=== PATIENT | female | born 1940 | race Hispanic/Latino ===

== ENCOUNTER 2018-01-06 15:14 | Observation (INO) | payer OTHER, MEDICARE ==
[~2018-01-06] VITALS: Ht 157.5 cm; Wt 73.6 kg
[~2018-01-06 15:14] MED LIST: AMLO10TA2 PO; BUME2TAB18 PO; CLON0.1T PO; DORZ10DR10 OU; GABA-531 PO; INSU100I21 SQ; LATA2.5D2 OU; METO2.5T2 PO; METO25TA6 PO; PANT40TA25 PO; POTA-79 PO; SIMV40TA5 PO; VALS160T28 PO
[2018-01-06] MEDS ORDERED: ASPIRIN 325 MG TABLET ONE (15:23)
[2018-01-06 15:48] LABS: BASOPHILS % (AUTO) 0.5 % (0.0-5.0); HEMATOCRIT 28.3 % (36-48); LYMPHOCYTES % (AUTO) 7.7 % (21.0-51.0); MEAN CORPUSCULAR HGB CONC 36.7 g/dL (32.0-36.0); MEAN CORPUSCULAR VOLUME 84.5 fL (79-99); MONOCYTES % (AUTO) 4.7 % (3.0-13.0); NEUTROPHILS % (AUTO) 86.1 % (40.0-77.0); PLATELET COUNT (AUTO) 279 K/uL (130-400); RED BLOOD CELL COUNT(AUTO) 3.35 MIL/uL (4.00-5.50); RED CELL DISTRIBUTION WIDTH 13.7 % (11.0-15.5); WHITE BLOOD COUNT (AUTO) 16.3 K/uL (4.8-10.8)
[2018-01-06 15:55] LABS: CREATININE 3.3 mg/dL (0.5-1.5); INR 0.95 (0.85-1.15); PARTIAL THROMBOPLASTIN TIME 24.2 SEC (26.3-35.5); POTASSIUM 4.3 mmol/L (3.5-5.1)
[2018-01-06 16:33] LABS: ALBUMIN 2.7 g/dL (3.5-5.0); BILIRUBIN,TOTAL 0.2 mg/dL (0.2-1.0); CREATINE KINASE MB 2.4 ng/mL (0.5-3.6); TOTAL PROTEIN, SERUM 6.4 g/dL (6.0-8.3)
[2018-01-06] MEDS ORDERED: FENTANYL CITRATE PF 50 MCG/1 ML 2ML VIAL ONE (17:34)
[2018-01-06] MEDS ORDERED: ONDANSETRON HCL MDV 20ML 2 MG/ML VIAL ONE (17:34)
[2018-01-06 20:10] LABS: APPEARANCE,URINE Clear (CLEAR); BILIRUBIN,URINE Negative (NEGATIVE); COLOR,URINE Yellow (YELLOW); GLUCOSE, URINE (UA) Negative (NEGATIVE); KETONES,URINE Negative (NEGATIVE); LEUKOCYTE ESTERASE ,URINE Negative (NEGATIVE); NITRATE,URINE Negative (NEGATIVE); OCCULT BLOOD,URINE Trace (NEGATIVE); PROTEIN,URINE 300 (NEGATIVE); UROBILINOGEN,URINE 0.2 mg/dL (0.2-1.0)
[2018-01-06 20:25] LABS: BACTERIA,URINE Rare /HPF (None Seen); MUCUS,URINE Rare LPF (None Seen); RBC,URINE 0-1 /HPF (0-1); SQUAMOUS EPITHELIAL CELL,UR 0-2 /HPF (0-2); TRANSITIONAL EPI CELLS,URINE Few /HPF (None Seen); WBC,URINE None Seen /HPF (0-1)
[2018-01-06 20:26] LABS: RENAL EPITHELIAL CELLS,URINE Rare /HPF (None Seen)
[2018-01-06] MEDS ORDERED: SODIUM CHLORIDE 0.9% 1000ML 1,000 ML IV ONE (20:57)
[2018-01-06] MEDS ORDERED: MEROPENEM 500 MG VIAL ONE (20:57)
[2018-01-06 22:00] VITALS: BP 198/71
[2018-01-06] MEDS ORDERED: MEROPENEM 500MG+NS 50ML 50 ML IV SCH (22:45)
[2018-01-06] MEDS ORDERED: HYDRALAZINE HCL 20 MG/ML VIAL IV PRN (22:45)
[2018-01-06] MEDS ORDERED: GLUCAGON 1MG KIT 1 MG ML IM PRN (22:45)
[2018-01-06] MEDS ORDERED: DEXTROSE 50%-WATER 50 ML DISP.SYRIN IV PRN (22:45)
[2018-01-06] MEDS ORDERED: MORPHINE SULFATE 2 MG/ML 1ML SYG IV PRN (22:45)
[2018-01-06] MEDS: INSULIN HUMULIN R 100 UNIT/ML 3ML SQ SCH (22:45)
[2018-01-06] MEDS: DEXTROSE 5 %-0.45 % NACL 1,000 ML IV SCH (22:45)
[2018-01-06] MEDS ORDERED: DEXTROSE 5 %-0.45 % NACL 1,000 ML IV ONE (22:49)
[2018-01-06] MEDS ORDERED: HYDRALAZINE HCL 20 MG/ML VIAL ONE (23:02)
[2018-01-06 23:03] VITALS: BP 186/73
[2018-01-06] MEDS ORDERED: ONDANSETRON HCL MDV 20ML 2 MG/ML VIAL IVP PRN (23:45)
[2018-01-06] MEDS: SODIUM CHLORIDE 0.9% 1000ML 1,000 ML IV SCH (23:45)
[2018-01-07 04:23] VITALS: BP 155/80
[2018-01-07] MEDS: INSULIN HUMULIN R 100 UNIT/ML 3ML SQ SCH ×4 (04:45→20:34)
[2018-01-07] MEDS ORDERED: PANTOPRAZOLE SODIUM 40 MG TABLET.DR PO SCH (09:00)
[2018-01-07] MEDS ORDERED: ENOXAPARIN SODIUM 40 MG/0.4 ML SYRINGE SQ SCH (09:00)
[2018-01-07] MEDS ORDERED: PANTOPRAZOLE 40 MG/VIAL IVP SCH ×2 (09:00→09:01)
[2018-01-07] MEDS: MEROPENEM 500 MG VIAL IVP SCH ×2 (09:40→18:26)
[2018-01-07] MEDS: SODIUM CHLORIDE 0.9% 1000ML 1,000 ML IV SCH (09:42)
[2018-01-07] MEDS ORDERED: MORPHINE SULFATE 4 MG/1ML SYG IVP PRN (10:15)
[2018-01-07] MEDS ORDERED: ACETAMINOPHEN-CODEINE 300/30MG TAB PO PRN ×2 (10:15)
[2018-01-07] MEDS ORDERED: MORPHINE SULFATE 2 MG/ML 1ML SYG IVP PRN (10:15)
[2018-01-07 11:00] VITALS: BP_SYST 194; BP_DIAS 74; BP_DIAS 77
[2018-01-07] MEDS ORDERED: LABETALOL 20 MG/4 ML DISP.SYRIN IV PRN (11:15)
[2018-01-07 16:00] VITALS: BP 194/74
[2018-01-07] MEDS ORDERED: MAGNESIUM CITRATE 296 ML SOLUTION PO SCH (17:00)
[2018-01-07] MEDS ORDERED: LACTULOSE 20 GM/30 ML UDCUP PO SCH (17:00)
[2018-01-07] MEDS ORDERED: SUCRALFATE 1 GM TABLET ONE (18:16)
[2018-01-07] MEDS: DEXTROSE 5 %-0.45 % NACL 1,000 ML IV SCH (18:27)
[2018-01-07] MEDS ORDERED: GABA-531 PO (19:41)
[2018-01-07 20:22] VITALS: BP 188/75
[2018-01-07] MEDS: PANTOPRAZOLE 40 MG/VIAL IVP SCH (20:30)
[2018-01-07] MEDS: SUCRALFATE 1 GM TABLET PO SCH (20:30)
[2018-01-07] MEDS: CLONIDINE HCL 0.1 MG TABLET PO SCH (20:32)
[2018-01-07] MEDS: METOPROLOL TARTRATE 25 MG TAB PO SCH (20:36)
[2018-01-07] MEDS ORDERED: ATORVASTATIN CALCIUM 20 MG TABLET PO SCH (21:00)
[2018-01-07] MEDS ORDERED: GABAPENTIN 300 MG CAPSULE PO SCH (21:00)
[2018-01-07 23:30] VITALS: BP 152/68
[2018-01-08] MEDS: MEROPENEM 500 MG VIAL IVP SCH ×2 (01:06→09:29)
[2018-01-08 04:41] VITALS: BP 148/61
[2018-01-08] MEDS: INSULIN HUMULIN R 100 UNIT/ML 3ML SQ SCH ×3 (05:13→16:30)
[2018-01-08] MEDS: SUCRALFATE 1 GM TABLET PO SCH ×3 (06:12→16:28)
[2018-01-08 06:16] LABS: HEMATOCRIT 25.1 % (36-48); MEAN CORPUSCULAR HEMOGLOBIN 31.2 pg (27.0-33.0); MEAN CORPUSCULAR VOLUME 86.8 fL (79-99); PLATELET COUNT (AUTO) 193 K/uL (130-400); RED BLOOD CELL COUNT(AUTO) 2.89 MIL/uL (4.00-5.50); RED CELL DISTRIBUTION WIDTH 13.8 % (11.0-15.5); WHITE BLOOD COUNT (AUTO) 9.1 K/uL (4.8-10.8)
[2018-01-08 06:32] LABS: ALBUMIN 2.1 g/dL (3.5-5.0); BILIRUBIN,TOTAL 0.2 mg/dL (0.2-1.0); CREATININE 3.4 mg/dL (0.5-1.5); TOTAL PROTEIN, SERUM 5.2 g/dL (6.0-8.3)
[2018-01-08 07:00] VITALS: BP 153/75
[2018-01-08 07:47] LABS: BASOPHILS % (MANUAL) 1 % (0-2); LYMPHOCYTES % (MANUAL) 10 % (22-44); MAN.DIFF COMMENT-IMPRESSION MANUAL DIFFERENTIAL; MONOCYTES % (MANUAL) 3 % (2-9); PLATELET MORPHOLOGY COMMENT ADEQUATE; SEGMENTED NEUTROPHILS % 86 % (40-70)
[2018-01-08] MEDS ORDERED: ENOXAPARIN SODIUM 30 MG/0.3 ML SQ SCH (09:00)
[2018-01-08] MEDS ORDERED: AMLODIPINE BESYLATE 5 MG TAB PO SCH (09:00)
[2018-01-08] MEDS ORDERED: METOLAZONE 2.5 MG TABLET PO SCH (09:00)
[2018-01-08] MEDS ORDERED: LOSARTAN 100 MG TABLET PO SCH (09:00)
[2018-01-08] MEDS: CLONIDINE HCL 0.1 MG TABLET PO SCH (09:27)
[2018-01-08] MEDS: METOPROLOL TARTRATE 25 MG TAB PO SCH (09:27)
[2018-01-08] MEDS ORDERED: LIDOCAINE HCL 2% VISCOUS 30 ML, MAG HYDROX/AL HYDROX/SIMETH 30 ML, BELLADONNA-PHENOBARB... PO PRN ×3 (09:45)
[2018-01-08] MEDS: PANTOPRAZOLE 40 MG/VIAL IVP SCH (09:52)
[2018-01-08] MEDS ORDERED: COMPOUND PO MISCELLANEOUS 1 EACH MISC MISC PRN (10:00)
[2018-01-08] MEDS ORDERED: LIDOCAINE HCL 2% VISCOUS 30 ML, MAG HYDROX/AL HYDROX/SIMETH 30 ML, DICYCLOMINE HCL 20 MG PO PRN ×3 (10:00)
[2018-01-08 11:00] VITALS: BP 165/58
[2018-01-08 16:00] VITALS: BP 141/68
[2018-01-08] MEDS ORDERED: INSULIN GLARGINE 100 UNITS/ML 10 ML VIAL SQ SCH (21:00)
== END 2018-01-08 18:39 | disposition home or self-care (01) ==
LOC: EDH 15:14 → EDHIP 19:35 → 3CH 20:53
PROVIDERS: ADMIT Internal Medicine; ATTEND Internal Medicine
DX: R10.11 Right upper quadrant pain (principal); C85.90 Non-Hodgkin lymphoma, unspecified, unspecified site; E11.22 Type 2 diabetes mellitus with diabetic chronic kidney disease; E11.649 Type 2 diabetes mellitus with hypoglycemia without coma; I13.0 Hypertensive heart and chronic kidney disease with heart failure and stage 1 through stage 4 chronic kidney disease, or unspecified chronic kidney disease; N18.3 Chronic kidney disease, stage 3 (moderate); I50.9 Heart failure, unspecified; E78.5 Hyperlipidemia, unspecified; E27.8 Other specified disorders of adrenal gland; Z80.3 Family history of malignant neoplasm of breast; Z80.7 Family history of other malignant neoplasms of lymphoid, hematopoietic and related tissues; Z82.3 Family history of stroke; Z82.49 Family history of ischemic heart disease and other diseases of the circulatory system; Z83.3 Family history of diabetes mellitus
CPT/HCPCS: 36415 ×2; 71045; 74176; 76705; 76770; 78227; 80053 ×2; 81001; 82550; 82553; 82948 ×9; 83874; 84484; 85025 ×2; 85610; 85730; 87040 ×2; 93005; 93970; 96361 ×2; 96372 ×2; 96374; 96375; 96376 ×2; 99285; A4218 ×4; A9537; C9113 ×3; G0378 ×47; J0360; J1650 ×2; J1815; J2185 ×6; J3010; J7030; J7042 ×2

== ENCOUNTER → 2018-02-07 | Outpatient (CLI) | payer OTHER, MEDICARE ==
[~2018-02-07] MED LIST changes: -VALS160T28 PO; +VALS160T29 PO
== END | disposition home or self-care (01) ==
LOC: SLP 20:28
PROVIDERS: ATTEND Family Medicine
DX: G47.30 Sleep apnea, unspecified (principal)
CPT/HCPCS: 95810

== ENCOUNTER → 2018-03-21 | Outpatient (CLI) | payer OTHER, MEDICARE | END | disposition home or self-care (01) | LOC: RAH 10:30 | PROVIDERS: ATTEND Family Medicine | DX: E11.51 Type 2 diabetes mellitus with diabetic peripheral angiopathy without gangrene (principal); I70.213 Atherosclerosis of native arteries of extremities with intermittent claudication, bilateral legs; I70.90 Unspecified atherosclerosis | CPT/HCPCS: 93925 ==

== ENCOUNTER 2018-10-02 12:25 | Emergency (ER) | payer OTHER, MEDICARE ==
[~2018-10-02 12:25] MED LIST changes: -AMLO10TA2 PO; +AMLO10TA6 PO; -DORZ10DR10 OU; -INSU100I21 SQ; +INSU100V12 SQ; -LATA2.5D2 OU; +LOSA100T20 PO; -METO2.5T2 PO; -POTA-79 PO; +TRAM50TA4 PO; -VALS160T29 PO; +[UNRECOGNIZED DRUG - OTHER] PO; +combigan OS; +humalog SQ; +latanoprost OU
[2018-10-02 12:56] LABS: BASOPHILS % (AUTO) 0.9 % (0.0-5.0); EOSINOPHILS % (AUTO) 2.2 % (0.0-8.0); HEMATOCRIT 31.7 % (36-48); LYMPHOCYTES % (AUTO) 12.1 % (21.0-51.0); MEAN CORPUSCULAR HEMOGLOBIN 27.5 pg (27.0-33.0); MEAN CORPUSCULAR VOLUME 85.9 fL (79-99); MONOCYTES % (AUTO) 5.1 % (3.0-13.0); NEUTROPHILS % (AUTO) 79.7 % (40.0-77.0); PLATELET COUNT (AUTO) 241 K/uL (130-400); RED BLOOD CELL COUNT(AUTO) 3.69 MIL/uL (4.00-5.50); RED CELL DISTRIBUTION WIDTH 14.9 % (11.0-15.5)
[2018-10-02 12:57] LABS: APPEARANCE,URINE Cloudy (CLEAR); BILIRUBIN,URINE Negative (NEGATIVE); COLOR,URINE Yellow (YELLOW); GLUCOSE, URINE (UA) >=1000 mg/dL (NEGATIVE); KETONES,URINE Negative (NEGATIVE); LEUKOCYTE ESTERASE ,URINE Small (NEGATIVE); NITRATE,URINE Positive (NEGATIVE); OCCULT BLOOD,URINE Small (NEGATIVE); PROTEIN,URINE 300 (NEGATIVE); UROBILINOGEN,URINE 0.2 mg/dL (0.2-1.0)
[2018-10-02 13:12] LABS: CREATININE 4.6 mg/dL (0.5-1.5); POTASSIUM 4.4 mmol/L (3.5-5.1)
[2018-10-02] MEDS ORDERED: CEFTRIAXONE SODIUM 1 GM ONE (13:17)
[2018-10-02] MEDS ORDERED: SODIUM CHLORIDE 0.9% 50 ML IV ONE (13:18)
[2018-10-02 13:24] LABS: BACTERIA,URINE Many /HPF (None Seen); RBC,URINE 0-1 /HPF (0-1); SQUAMOUS EPITHELIAL CELL,UR Few /HPF (0-2); WBC,URINE TNTC /HPF (0-1)
[2018-10-02] MEDS ORDERED: SODIUM CHLORIDE 0.9% 1000ML 1,000 ML IV ONE (14:43)
[2018-10-02] MEDS ORDERED: INSULIN HUMULIN R 100 UNIT/ML 3ML ONE (14:44)
== END 2018-10-02 16:21 | disposition home or self-care (01) ==
LOC: EDH 12:25
DX: N10 Acute pyelonephritis (principal); E11.65 Type 2 diabetes mellitus with hyperglycemia; I12.9 Hypertensive chronic kidney disease with stage 1 through stage 4 chronic kidney disease, or unspecified chronic kidney disease; E11.22 Type 2 diabetes mellitus with diabetic chronic kidney disease; N18.9 Chronic kidney disease, unspecified; C85.90 Non-Hodgkin lymphoma, unspecified, unspecified site; Z79.4 Long term (current) use of insulin; Z88.6 Allergy status to analgesic agent
CPT/HCPCS: 36415; 80048; 81001; 82948 ×2; 85025; 87040 ×2; 87077; 87088; 87186; 93005; 96361; 96374; 96375; 99284; J0696; J1815; J7030

== ENCOUNTER 2018-10-04 14:42 | Inpatient (IN) | payer OTHER, MEDICARE ==
[~2018-10-04] VITALS: Ht 157.5 cm; Wt 71.5 kg
[2018-10-04 15:08] LABS: EOSINOPHILS % (AUTO) 2.4 % (0.0-8.0); LYMPHOCYTES % (AUTO) 12.5 % (21.0-51.0); MEAN CORPUSCULAR HEMOGLOBIN 28.5 pg (27.0-33.0); MEAN CORPUSCULAR HGB CONC 33.7 g/dL (32.0-36.0); MEAN CORPUSCULAR VOLUME 84.6 fL (79-99); MONOCYTES % (AUTO) 4.2 % (3.0-13.0); NEUTROPHILS % (AUTO) 79.9 % (40.0-77.0); PLATELET COUNT (AUTO) 232 K/uL (130-400); RED BLOOD CELL COUNT(AUTO) 3.43 MIL/uL (4.00-5.50); RED CELL DISTRIBUTION WIDTH 14.8 % (11.0-15.5); WHITE BLOOD COUNT (AUTO) 8.7 K/uL (4.8-10.8)
[2018-10-04 15:21] LABS: INR 0.94 (0.85-1.15); PARTIAL THROMBOPLASTIN TIME 27.5 SEC (26.3-35.5); PROTHROMBIN TIME 9.9 SEC (9.6-11.6)
[2018-10-04 15:24] LABS: ALBUMIN 2.7 g/dL (3.5-5.0); BILIRUBIN,TOTAL 0.2 mg/dL (0.2-1.0); CREATININE 4.4 mg/dL (0.5-1.5); POTASSIUM 4.8 mmol/L (3.5-5.1); TOTAL PROTEIN, SERUM 6.7 g/dL (6.0-8.3)
[2018-10-04 15:29] LABS: B-TYPE NATRIURETIC PEPTIDE 339 pg/mL (0-100)
[2018-10-04] MEDS ORDERED: INSULIN HUMULIN R 100 UNIT/ML 3ML ONE (15:34)
[2018-10-04] MEDS ORDERED: GLUCAGON 1MG KIT 1 MG ML IM PRN (19:30)
[2018-10-04] MEDS ORDERED: HYDRALAZINE HCL 20 MG/ML VIAL IV PRN (19:30)
[2018-10-04] MEDS ORDERED: DEXTROSE 50%-WATER 50 ML DISP.SYRIN IV PRN (19:30)
[2018-10-04 22:16] VITALS: BP 207/76
[2018-10-04] MEDS: INSULIN R PO SS2 SQ SCH (22:37)
[2018-10-04 23:18] VITALS: BP 172/60
[2018-10-05] VITALS (14 sets, daily range): BP systolic 125–181; BP diastolic 49–87
[2018-10-05] MEDS ORDERED: METO50TA18 PO (00:22)
[2018-10-05] MEDS ORDERED: POTA10CA44 PO (00:22)
[2018-10-05] MEDS ORDERED: LATA7.5D OP (00:22)
[2018-10-05] MEDS ORDERED: METO2.5T2 PO (00:22)
[2018-10-05] MEDS ORDERED: VIT1CAPS46 PO (00:22)
[2018-10-05] MEDS ORDERED: LORA10TA7 PO (00:22)
[2018-10-05 03:49] LABS: HEMATOCRIT 24.3 % (36-48); MEAN CORPUSCULAR HEMOGLOBIN 27.4 pg (27.0-33.0); MEAN CORPUSCULAR HGB CONC 33.5 g/dL (32.0-36.0); PLATELET COUNT (AUTO) 177 K/uL (130-400); RED BLOOD CELL COUNT(AUTO) 2.96 MIL/uL (4.00-5.50); RED CELL DISTRIBUTION WIDTH 14.5 % (11.0-15.5); WHITE BLOOD COUNT (AUTO) 7.8 K/uL (4.8-10.8)
[2018-10-05 03:53] LABS: INR 0.95 (0.85-1.15); PARTIAL THROMBOPLASTIN TIME 26.4 SEC (26.3-35.5)
[2018-10-05 03:58] LABS: CREATININE 4.1 mg/dL (0.5-1.5); POTASSIUM 4.1 mmol/L (3.5-5.1)
[2018-10-05 04:08] LABS: BAND NEUTROPHILS % (MANUAL) 1 % (0-2); BASOPHILS % (MANUAL) 2 % (0-2); EOSINOPHILS % (MANUAL) 2 % (1-6); LYMPHOCYTES % (MANUAL) 24 % (22-44); MAN.DIFF COMMENT-IMPRESSION MANUAL DIFFERENTIAL; MONOCYTES % (MANUAL) 5 % (2-9); SEGMENTED NEUTROPHILS % 66 % (40-70)
[2018-10-05 04:10] LABS: PLATELET MORPHOLOGY COMMENT ADEQUATE
[2018-10-05] MEDS: INSULIN R PO SS2 SQ SCH ×3 (06:39→16:30)
[2018-10-05] MEDS: AMLODIPINE BESYLATE 5 MG TAB PO SCH (09:03)
[2018-10-05] MEDS: LOSARTAN 100 MG TABLET PO SCH (09:03)
[2018-10-05] MEDS: METOPROLOL TARTRATE 50 MG TAB PO SCH ×2 (09:03→21:09)
[2018-10-05] MEDS: PANTOPRAZOLE SODIUM 40 MG TABLET.DR PO SCH (09:03)
[2018-10-05] MEDS ORDERED: LIDOCAINE HCL 1% MDV 50ML VIAL ONE (11:01)
[2018-10-05] MEDS: ONDANSETRON HCL 4 MG/2 ML VIAL IVP PRN (12:16)
[2018-10-05] MEDS ORDERED: SODIUM CHLORIDE 0.9% 1000ML 1,000 ML IV ONE (16:16)
[2018-10-05] MEDS ORDERED: ALBUMIN (HUMAN) 25% 100 ML IV PRN (16:30)
[2018-10-05] MEDS ORDERED: SODIUM CHLORIDE 0.9% 1000ML 1,000 ML IV PRN (16:30)
[2018-10-05] MEDS ORDERED: 0.9% SODIUM CHLORIDE 250 ML IV BAG IV PRN (16:30)
[2018-10-05 16:53] LABS: HEMATOCRIT 24.5 % (36-48)
[2018-10-05] MEDS ORDERED: ACETAMINOPHEN 325 MG TAB PO PRN (17:00)
[2018-10-05 17:04] LABS: HEMOGLOBIN A1C 13.7 % (4.0-6.0)
[2018-10-05 17:12] LABS: ALBUMIN 2.3 g/dL (3.5-5.0); CREATININE 4.7 mg/dL (0.5-1.5)
[2018-10-05 17:22] LABS: % IRON SATURATION 31.8 % (22-44)
[2018-10-05] MEDS: HEPARIN SODIUM 5000UNIT/ML 1ML VIAL IJ PRN (18:22)
[2018-10-05] MEDS: INSULIN R PO SS1 SQ SCH (21:18)
[2018-10-06 03:57] VITALS: BP 162/59
[2018-10-06] MEDS: INSULIN R PO SS1 SQ SCH ×4 (06:30→21:59)
[2018-10-06 07:47] VITALS: BP 148/55
[2018-10-06] MEDS: LOSARTAN 100 MG TABLET PO SCH (09:00)
[2018-10-06] MEDS: METOPROLOL TARTRATE 50 MG TAB PO SCH ×2 (09:00→20:53)
[2018-10-06] MEDS: AMLODIPINE BESYLATE 5 MG TAB PO SCH (09:00)
[2018-10-06] MEDS: PANTOPRAZOLE SODIUM 40 MG TABLET.DR PO SCH (09:48)
[2018-10-06 11:05] LABS: MEAN CORPUSCULAR HEMOGLOBIN 28.3 pg (27.0-33.0); MEAN CORPUSCULAR HGB CONC 33.7 g/dL (32.0-36.0); MEAN CORPUSCULAR VOLUME 84.1 fL (79-99); PLATELET COUNT (AUTO) 188 K/uL (130-400); RED BLOOD CELL COUNT(AUTO) 3.09 MIL/uL (4.00-5.50); RED CELL DISTRIBUTION WIDTH 14.8 % (11.0-15.5); WHITE BLOOD COUNT (AUTO) 7.9 K/uL (4.8-10.8)
[2018-10-06 11:12] VITALS: BP 163/62
[2018-10-06 11:25] LABS: CREATININE 3.9 mg/dL (0.5-1.5); POTASSIUM 4.4 mmol/L (3.5-5.1)
[2018-10-06] MEDS: HEPARIN SODIUM 5000UNIT/ML 1ML VIAL IJ PRN (15:13)
[2018-10-06 16:02] VITALS: BP 188/68
[2018-10-06] MEDS: ONDANSETRON HCL 4 MG/2 ML VIAL IVP PRN (16:36)
[2018-10-06] MEDS: HEPARIN SODIUM 5000UNIT/ML 1ML VIAL SQ SCH (16:38)
[2018-10-06 19:39] VITALS: BP 167/71
[2018-10-06] MEDS: SIMVASTATIN 20 MG TABLET PO SCH (20:53)
[2018-10-06] MEDS: DOCUSATE SODIUM 100 MG CAP PO SCH (20:53)
[2018-10-06] MEDS: LATANOPROST 2.5 ML DROPS OU SCH (20:53)
[2018-10-06] MEDS: BUMETANIDE 1 MG TAB PO SCH (20:54)
[2018-10-06] MEDS: INSULIN GLARGINE 100 UNITS/ML 10 ML VIAL SQ SCH (21:58)
[2018-10-06 23:25] VITALS: BP 168/66
[2018-10-07] VITALS (8 sets, daily range): BP systolic 133–175; BP diastolic 50–70
[2018-10-07] MEDS: CLONIDINE HCL 0.1 MG TABLET PO PRN ×2 (01:09→23:27)
[2018-10-07 03:46] LABS: HEMATOCRIT 24.7 % (36-48); MEAN CORPUSCULAR HEMOGLOBIN 27.3 pg (27.0-33.0); MEAN CORPUSCULAR HGB CONC 33.3 g/dL (32.0-36.0); MEAN CORPUSCULAR VOLUME 81.9 fL (79-99); PLATELET COUNT (AUTO) 171 K/uL (130-400); RED BLOOD CELL COUNT(AUTO) 3.02 MIL/uL (4.00-5.50); RED CELL DISTRIBUTION WIDTH 14.4 % (11.0-15.5); WHITE BLOOD COUNT (AUTO) 8.5 K/uL (4.8-10.8)
[2018-10-07 04:13] LABS: CREATININE 2.8 mg/dL (0.5-1.5); POTASSIUM 3.4 mmol/L (3.5-5.1); THYROID STIMULATING HORMONE 2.25 uIU/mL (0.36-3.74)
[2018-10-07] MEDS: HEPARIN SODIUM 5000UNIT/ML 1ML VIAL SQ SCH ×2 (05:03→17:00)
[2018-10-07] MEDS: ONDANSETRON HCL 4 MG/2 ML VIAL IVP PRN (05:14)
[2018-10-07] MEDS: INSULIN R PO SS1 SQ SCH ×4 (06:01→21:07)
[2018-10-07 07:10] LABS: HEPATITIS Bs ANTIGEN SCREEN P Negative (Negative)
[2018-10-07] MEDS: METOLAZONE 2.5 MG TABLET PO SCH (09:01)
[2018-10-07] MEDS: AMLODIPINE BESYLATE 5 MG TAB PO SCH (09:01)
[2018-10-07] MEDS: LORATADINE 10 MG TABLET PO SCH (09:01)
[2018-10-07] MEDS: DOCUSATE SODIUM 100 MG CAP PO SCH ×4 (09:01→21:00)
[2018-10-07] MEDS: BUMETANIDE 1 MG TAB PO SCH ×2 (09:01→20:58)
[2018-10-07] MEDS: LOSARTAN 100 MG TABLET PO SCH (09:01)
[2018-10-07] MEDS: METOPROLOL TARTRATE 50 MG TAB PO SCH ×2 (09:01→20:59)
[2018-10-07] MEDS: PANTOPRAZOLE SODIUM 40 MG TABLET.DR PO SCH (09:01)
[2018-10-07] MEDS: LATANOPROST 2.5 ML DROPS OU SCH (20:57)
[2018-10-07] MEDS: SIMVASTATIN 20 MG TABLET PO SCH (20:59)
[2018-10-07] MEDS: INSULIN GLARGINE 100 UNITS/ML 10 ML VIAL SQ SCH (21:06)
[2018-10-08 03:52] VITALS: BP 130/49
[2018-10-08] MEDS: HEPARIN SODIUM 5000UNIT/ML 1ML VIAL SQ SCH (04:09)
[2018-10-08] MEDS: INSULIN R PO SS1 SQ SCH ×2 (07:07→11:30)
[2018-10-08 08:07] VITALS: BP_SYST 138; BP_SYST 145; BP_SYST 150; BP_DIAS 50; BP_DIAS 60
[2018-10-08] MEDS: DOCUSATE SODIUM 100 MG CAP PO SCH ×2 (09:00→14:00)
[2018-10-08] MEDS: METOPROLOL TARTRATE 50 MG TAB PO SCH (09:00)
[2018-10-08] MEDS: LOSARTAN 100 MG TABLET PO SCH (09:00)
[2018-10-08] MEDS: METOLAZONE 2.5 MG TABLET PO SCH (09:00)
[2018-10-08] MEDS: AMLODIPINE BESYLATE 5 MG TAB PO SCH (09:00)
[2018-10-08] MEDS: BUMETANIDE 1 MG TAB PO SCH (09:00)
[2018-10-08] MEDS: PANTOPRAZOLE SODIUM 40 MG TABLET.DR PO SCH (09:00)
[2018-10-08] MEDS: LORATADINE 10 MG TABLET PO SCH (09:00)
[2018-10-08 10:45] VITALS: BP 100/74
[2018-10-08 11:00] VITALS: BP 96/73
[2018-10-08 11:24] VITALS: BP 120/46
[2018-10-08] MEDS: HEPARIN SODIUM 5000UNIT/ML 1ML VIAL IJ PRN (13:19)
== END 2018-10-08 16:07 | disposition home or self-care (01) | DRG 673 ==
LOC: EDH 14:42 → OBSVTOIN 18:50 → EDHIP 18:50 → 2DH 21:32
PROVIDERS: ADMIT Internal Medicine Critical Care Medicine; ATTEND Internal Medicine Critical Care Medicine
PROC: 0JH63XZ Insertion of Tunneled Vascular Access Device into Chest Subcutaneous Tissue and Fascia, Percutaneous Approach (ICD-10-PCS; principal; 2018-10-05)
PROC: 5A1D70Z Performance of Urinary Filtration, Intermittent, Less than 6 Hours Per Day (ICD-10-PCS; 2018-10-05)
PROC: 02HV33Z Insertion of Infusion Device into Superior Vena Cava, Percutaneous Approach (ICD-10-PCS; 2018-10-05)
PROC: B5181ZA Fluoroscopy of Superior Vena Cava using Low Osmolar Contrast, Guidance (ICD-10-PCS; 2018-10-05)
PROC: B548ZZA Ultrasonography of Superior Vena Cava, Guidance (ICD-10-PCS; 2018-10-05)
PROC: 5A1D70Z Performance of Urinary Filtration, Intermittent, Less than 6 Hours Per Day (ICD-10-PCS; 2018-10-06)
PROC: 5A1D70Z Performance of Urinary Filtration, Intermittent, Less than 6 Hours Per Day (ICD-10-PCS; 2018-10-08)
DX: N17.9 Acute kidney failure, unspecified (principal); J96.01 Acute respiratory failure with hypoxia; I12.0 Hypertensive chronic kidney disease with stage 5 chronic kidney disease or end stage renal disease; N18.6 End stage renal disease; E11.22 Type 2 diabetes mellitus with diabetic chronic kidney disease; D63.1 Anemia in chronic kidney disease; E11.65 Type 2 diabetes mellitus with hyperglycemia; E66.01 Morbid (severe) obesity due to excess calories; G47.33 Obstructive sleep apnea (adult) (pediatric); Z79.4 Long term (current) use of insulin; Z85.72 Personal history of non-Hodgkin lymphomas; Z88.6 Allergy status to analgesic agent; Z68.28 Body mass index [BMI] 28.0-28.9, adult; Z99.2 Dependence on renal dialysis
CPT/HCPCS: 36415; 36558; 71045; 77001; 80048; 80053; 80061; 82040; 82565; 82728; 82948; 83036; 83540; 83550; 83880; 84443; 84484; 84520; 85014; 85018; 85025; 85027; 85610; 85730; 86701; 86704; 86706; 87340; 87390; 87520; 90935; 93005; 94760; 99291; C1750; G0378; J0360; J1644; J1815; J2405; J3490; J7030

== ENCOUNTER 2019-01-03 11:04 | Emergency (ER) | payer OTHER, MEDICARE ==
[~2019-01-03 11:04] MED LIST changes: -AMLO10TA6 PO; -CLON0.1T PO; -GABA-531 PO; -INSU100V12 SQ; +LATA7.5D OP; +LORA10TA7 PO; -LOSA100T20 PO; +METO2.5T2 PO; -METO25TA6 PO; -PANT40TA25 PO; -TRAM50TA4 PO; -[UNRECOGNIZED DRUG - OTHER] PO; -combigan OS; -humalog SQ; -latanoprost OU
[2019-01-03 12:04] LABS: BASOPHILS % (AUTO) 0.6 % (0.0-5.0); EOSINOPHILS % (AUTO) 1.2 % (0.0-8.0); HEMATOCRIT 35.1 % (36-48); LYMPHOCYTES % (AUTO) 7.2 % (21.0-51.0); MEAN CORPUSCULAR HEMOGLOBIN 29.6 pg (27.0-33.0); MEAN CORPUSCULAR HGB CONC 34.1 g/dL (32.0-36.0); MEAN CORPUSCULAR VOLUME 86.6 fL (79-99); PLATELET COUNT (AUTO) 237 K/uL (130-400); RED BLOOD CELL COUNT(AUTO) 4.05 MIL/uL (4.00-5.50); RED CELL DISTRIBUTION WIDTH 14.7 % (11.0-15.5); WHITE BLOOD COUNT (AUTO) 8.7 K/uL (4.8-10.8)
[2019-01-03 12:12] LABS: CREATININE 2.1 mg/dL (0.5-1.5); POTASSIUM 3.5 mmol/L (3.5-5.1)
[2019-01-03 12:17] LABS: ALBUMIN 2.9 g/dL (3.5-5.0); BILIRUBIN,TOTAL 0.3 mg/dL (0.2-1.0); TOTAL PROTEIN, SERUM 6.3 g/dL (6.0-8.3)
[2019-01-03 12:19] LABS: INR 0.95 (0.85-1.15); PARTIAL THROMBOPLASTIN TIME 21.5 SEC (26.3-35.5)
== END 2019-01-03 15:07 | disposition home or self-care (01) ==
LOC: EDH 11:04
DX: T82.41XA Breakdown (mechanical) of vascular dialysis catheter, initial encounter (principal); I12.0 Hypertensive chronic kidney disease with stage 5 chronic kidney disease or end stage renal disease; E11.22 Type 2 diabetes mellitus with diabetic chronic kidney disease; N18.6 End stage renal disease; Z99.2 Dependence on renal dialysis; Z88.6 Allergy status to analgesic agent
CPT/HCPCS: 36415; 71045; 80053; 85025; 85610; 85730

== ENCOUNTER 2019-02-04 10:46 | Day surgery (SDC) | payer OTHER, MEDICARE ==
[2019-02-04 11:15] VITALS: BP 140/54
[2019-02-04 11:33] LABS: BASOPHILS % (AUTO) 0.8 % (0.0-5.0); EOSINOPHILS % (AUTO) 3.9 % (0.0-8.0); HEMATOCRIT 32.5 % (36-48); LYMPHOCYTES % (AUTO) 15.5 % (21.0-51.0); MEAN CORPUSCULAR HEMOGLOBIN 29.3 pg (27.0-33.0); MEAN CORPUSCULAR VOLUME 86.2 fL (79-99); MONOCYTES % (AUTO) 7.3 % (3.0-13.0); NEUTROPHILS % (AUTO) 72.5 % (40.0-77.0); PLATELET COUNT (AUTO) 232 K/uL (130-400); RED BLOOD CELL COUNT(AUTO) 3.77 MIL/uL (4.00-5.50); RED CELL DISTRIBUTION WIDTH 14.7 % (11.0-15.5); WHITE BLOOD COUNT (AUTO) 8.6 K/uL (4.8-10.8)
[2019-02-04 11:48] LABS: INR 0.97 (0.85-1.15); PARTIAL THROMBOPLASTIN TIME 27.1 SEC (26.3-35.5); PROTHROMBIN TIME 10.2 SEC (9.6-11.6)
[2019-02-04] MEDS ORDERED: LIDOCAINE HCL 1% MDV 50ML VIAL ONE (12:03)
[2019-02-04] MEDS ORDERED: METO50TA18 PO (12:48)
[2019-02-04] MEDS ORDERED: AMLO10TA7 PO (12:48)
[2019-02-04] MEDS ORDERED: CLON0.1T PO (12:48)
[2019-02-04] MEDS ORDERED: GABA-531 PO (12:48)
[2019-02-04] MEDS ORDERED: MIDAZOLAM HCL 1 MG/ML 2ML VIAL ONE (13:26)
[2019-02-04 14:10] VITALS: BP 155/65
== END 2019-02-04 15:10 | disposition home or self-care (01) ==
LOC: DAH 10:46
PROVIDERS: ATTEND Internal Medicine Nephrology
DX: Z45.2 Encounter for adjustment and management of vascular access device (principal); I12.0 Hypertensive chronic kidney disease with stage 5 chronic kidney disease or end stage renal disease; E11.22 Type 2 diabetes mellitus with diabetic chronic kidney disease; N18.6 End stage renal disease; Z99.2 Dependence on renal dialysis; E11.21 Type 2 diabetes mellitus with diabetic nephropathy; Z98.890 Other specified postprocedural states; Z90.710 Acquired absence of both cervix and uterus; Z79.899 Other long term (current) drug therapy; Z79.84 Long term (current) use of oral hypoglycemic drugs; Z79.4 Long term (current) use of insulin
CPT/HCPCS: 36415; 36558; 77001; 82948; 85025; 85610; 85730; A4606; C1750; C1894; J1644 ×2; J2250; J3490; 99156; 99157

== ENCOUNTER 2019-05-31 08:50 | Day surgery (SDC) | payer OTHER, MEDICARE ==
[2019-05-30 12:55] LABS: INR 0.94 (0.85-1.15); PARTIAL THROMBOPLASTIN TIME 26.1 SEC (26.3-35.5); PROTHROMBIN TIME 9.9 SEC (9.6-11.6)
[2019-05-30 12:56] LABS: CREATININE 2.6 mg/dL (0.5-1.5); POTASSIUM 3.7 mmol/L (3.5-5.1)
[2019-05-30 13:39] VITALS: BP 165/65
[~2019-05-31] VITALS: Ht 153.7 cm; Wt 68.8 kg
[~2019-05-31 08:50] MED LIST changes: +AMLO10TA7 PO; -BUME2TAB18 PO; +CLON0.1T PO; +GABA-531 PO; -LORA10TA7 PO; -METO2.5T2 PO; +METO50TA18 PO
[2019-05-31 09:05] VITALS: BP 136/60
[2019-05-31] MEDS ORDERED: LIDOCAINE HCL 1% MDV 50ML VIAL ONE (10:09)
--- NOTE | 2019-05-31 11:07 | NUR ---
Permacath Removal Time out performed at 1050 in day patient rm 7. See Dr Malave notes. Permacath removed intact. Patient tolerated well. No oozing, bruising, or hematoma noted. CXR has been ordered. Hand off report given to Sujit LEONARD. Patient instructed to notify staff if bleeding or swelling noted.
[2019-05-31] MEDS: ACETAMINOPHEN 325 MG TAB ONE ×2 (12:12→13:40)
[2019-05-31 13:06] VITALS: BP 164/46
== END 2019-05-31 13:05 | disposition home or self-care (01) ==
LOC: DAH 08:50
PROVIDERS: ATTEND Internal Medicine Nephrology
DX: Z45.2 Encounter for adjustment and management of vascular access device (principal); I12.0 Hypertensive chronic kidney disease with stage 5 chronic kidney disease or end stage renal disease; E11.22 Type 2 diabetes mellitus with diabetic chronic kidney disease; N18.6 End stage renal disease; K21.9 Gastro-esophageal reflux disease without esophagitis; Z88.8 Allergy status to other drugs, medicaments and biological substances; Z85.72 Personal history of non-Hodgkin lymphomas; Z79.899 Other long term (current) drug therapy; Z98.41 Cataract extraction status, right eye; Z98.42 Cataract extraction status, left eye; Z82.49 Family history of ischemic heart disease and other diseases of the circulatory system; Z83.3 Family history of diabetes mellitus; Z82.3 Family history of stroke
CPT/HCPCS: 36415; 36589; 71045; 80048; 82948; 85610; 85730; A4606; J3490; J1644

== ENCOUNTER 2019-09-07 05:05 | Observation (INO) | payer OTHER, MEDICARE ==
[~2019-09-07] VITALS: Ht 157.5 cm; Wt 64.8 kg
[~2019-09-07 05:05] MED LIST changes: +SIMV-46 PO; -SIMV40TA5 PO
[2019-09-07 05:47] LABS: BASOPHILS % (AUTO) 2.1 % (0.0-5.0); EOSINOPHILS % (AUTO) 2.8 % (0.0-8.0); HEMATOCRIT 31.5 % (36-48); LYMPHOCYTES % (AUTO) 15.7 % (21.0-51.0); MEAN CORPUSCULAR HEMOGLOBIN 29.8 pg (27.0-33.0); MEAN CORPUSCULAR HGB CONC 34.5 g/dL (32.0-36.0); MEAN CORPUSCULAR VOLUME 86.4 fL (79-99); MONOCYTES % (AUTO) 6.9 % (3.0-13.0); NEUTROPHILS % (AUTO) 72.5 % (40.0-77.0); PLATELET COUNT (AUTO) 265 K/uL (130-400); RED BLOOD CELL COUNT(AUTO) 3.65 MIL/uL (4.00-5.50); RED CELL DISTRIBUTION WIDTH 13.8 % (11.0-15.5); WHITE BLOOD COUNT (AUTO) 7.5 K/uL (4.8-10.8)
[2019-09-07 06:06] LABS: INR 0.93 (0.85-1.15); PARTIAL THROMBOPLASTIN TIME 26.8 SEC (26.3-35.5); PROTHROMBIN TIME 9.8 SEC (9.6-11.6)
[2019-09-07 06:11] LABS: ALBUMIN 2.9 g/dL (3.5-5.0); BILIRUBIN,DIRECT 0.1 mg/dL (0.0-0.3); BILIRUBIN,TOTAL 0.5 mg/dL (0.2-1.0); CREATININE 5.4 mg/dL (0.5-1.5)
[2019-09-07 06:11] LABS: APPEARANCE,URINE Clear (CLEAR); BILIRUBIN,URINE Negative (NEGATIVE); COLOR,URINE Yellow (YELLOW); GLUCOSE, URINE (UA) >=1000 mg/dL (NEGATIVE); KETONES,URINE Negative (NEGATIVE); LEUKOCYTE ESTERASE ,URINE Negative (NEGATIVE); NITRATE,URINE Negative (NEGATIVE); OCCULT BLOOD,URINE Trace (NEGATIVE); PH,URINE 7.5 (5.0-8.0); PROTEIN,URINE >=1000 mg/dL (NEGATIVE); UROBILINOGEN,URINE 0.2 mg/dL (0.2-1.0)
[2019-09-07 06:29] LABS: BACTERIA,URINE Few /HPF (None Seen); RBC,URINE 0-1 /HPF (0-1); YEAST,URINE BUDDING Few /HPF (None Seen)
[2019-09-07] MEDS ORDERED: NITROGLYCERIN 1GM/1 INCH PACKET TD ONE (06:32)
[2019-09-07] MEDS ORDERED: INSULIN HUMULIN R 100 UNIT/ML 3ML ONE ×2 (07:14→08:57)
[2019-09-07 11:40] VITALS: BP 152/58
[2019-09-07] MEDS ORDERED: ONDANSETRON HCL 4 MG/2 ML VIAL ONE (11:58)
[2019-09-07] MEDS ORDERED: ONDANSETRON HCL 4 MG/2 ML VIAL IVP PRN ×2 (12:00→13:00)
[2019-09-07] MEDS ORDERED: SODIUM CHLORIDE 0.9% 10 ML VIAL IVP SCH (13:00)
[2019-09-07] MEDS ORDERED: GLUCAGON 1MG KIT 1 MG ML IM PRN (13:00)
[2019-09-07] MEDS ORDERED: LACTULOSE 20 GM/30 ML UDCUP PO PRN (13:00)
[2019-09-07] MEDS ORDERED: CLONIDINE HCL 0.1 MG TABLET PO PRN (13:00)
[2019-09-07] MEDS ORDERED: NITROGLYCERIN 0.4 MG SL TAB SL PRN (13:00)
[2019-09-07] MEDS ORDERED: DEXTROSE 50%-WATER 50 ML DISP.SYRIN IV PRN (13:00)
[2019-09-07] MEDS ORDERED: ACETAMINOPHEN 325 MG TAB PO PRN ×2 (13:00)
[2019-09-07] MEDS ORDERED: IPRATROPIUM/ALBUTEROL SULFATE 3 ML SOLUTION IH PRN (13:00)
[2019-09-07 13:25] LABS: CREATINE KINASE, TOTAL 42 U/L (21-232); MYOGLOBIN 151 ng/mL (10-92); TROPONIN I < 0.04 ng/mL (0.00-0.06)
[2019-09-07] MEDS: NITROGLYCERIN 1GM/1 INCH PACKET TD SCH ×2 (15:15→23:15)
[2019-09-07 15:30] VITALS: BP 153/65
[2019-09-07] MEDS: INSULIN R PO SSI SQ SCH ×2 (16:30→21:27)
[2019-09-07 18:33] LABS: CREATINE KINASE, TOTAL 36 U/L (21-232); MYOGLOBIN 131 ng/mL (10-92); TROPONIN I < 0.04 ng/mL (0.00-0.06)
[2019-09-07 19:46] VITALS: BP 150/54
[2019-09-08 00:19] VITALS: BP 146/53
[2019-09-08 03:54] LABS: HEMATOCRIT 29.3 % (36-48); MEAN CORPUSCULAR HEMOGLOBIN 30.1 pg (27.0-33.0); MEAN CORPUSCULAR HGB CONC 34.9 g/dL (32.0-36.0); MEAN CORPUSCULAR VOLUME 86.2 fL (79-99); PLATELET COUNT (AUTO) 231 K/uL (130-400); RED CELL DISTRIBUTION WIDTH 14.2 % (11.0-15.5); WHITE BLOOD COUNT (AUTO) 8.2 K/uL (4.8-10.8)
[2019-09-08 03:59] LABS: HEMOGLOBIN A1C 11.7 % (4.0-6.0)
[2019-09-08 04:08] LABS: LYMPHOCYTES % (MANUAL) 26 % (22-44); MAN.DIFF COMMENT-IMPRESSION MANUAL DIFFERENTIAL; MONOCYTES % (MANUAL) 4 % (2-9); SEGMENTED NEUTROPHILS % 70 % (40-70)
[2019-09-08 04:09] LABS: PLATELET MORPHOLOGY COMMENT ADEQUATE
[2019-09-08 04:19] LABS: B-TYPE NATRIURETIC PEPTIDE 345 pg/mL (0-100)
[2019-09-08 04:20] LABS: CREATININE 4.3 mg/dL (0.5-1.5); POTASSIUM 3.5 mmol/L (3.5-5.1)
[2019-09-08 04:28] VITALS: BP 158/65
[2019-09-08] MEDS: NITROGLYCERIN 1GM/1 INCH PACKET TD SCH (06:32)
[2019-09-08] MEDS: INSULIN R PO SSI SQ SCH (06:34)
[2019-09-08 07:30] VITALS: BP 160/63
[2019-09-08 11:30] VITALS: BP 174/57
--- NOTE | 2019-09-08 12:28 | NUR ---
RD NOTIFICATION DIET: 60GMCCD/ RENAL DIALYSIS. PO INTAKE 50% AND HAS DECREASED APPETITE. PT STATED SHE HAS DECREASED APPETITE AND EPISODES OF NAUSEA/ VOMITING ESPECIALLY AFTER EACH DIALYSIS TREATMENT. DAUGHTER COOKS FOR PT AT HOME AND STATED SHE HAS LIMITED KNOWLEDGE REGARDING PT RECOMMENDED DIET/RESTRICTIONS. RD PROVIDED FLUID RESTRICTION, DIABETIC AND RENAL DIALYSIS DIET MEDICAL NUTRITION THERAPY. DAUGHTER ASKED QUESTIONS, RD ANSWERED AND FAMILY VERBALIZED UNDERSTANDING. EDUCATION MATERIALS PROVIDED TO FAMILY TO USE REFERENCE. DAUGHTER NOW AWARE OF PT CONDITION AND STATED SHE WILL COOK DIFFERENTLY TO MEET PT NUTRITIONAL NEEDS. RD RECOMMENDS ADD 75GMCCD TO DIET ORDER AND D/C 60GMCCD OFFER NEPRO POST DIALYSIS TREATMENTS AND/OR WHEN EXPERIENCING POOR APPETITE RECOMMEND NAUSEA/VOMITING MEDICATION POST DIALYSIS TREATMENTS/ POSSIBLE APPETITE STIMULANT RD PROVIDED DIET AND NUTRITION EDUCATION, MATERIALS PROVIDED RD WILL CONTINUE TO MONITOR AND FOLLOW UP NEEDED, THANK YOU. Addendum: 09/08/19 at [address] Amended: Links added.
--- NOTE | 2019-09-08 12:40 | NUR ---
NUTRITION EDUCATION DAUGHTER COOKS FOR PT AT HOME AND STATED SHE HAS LIMITED KNOWLEDGE REGARDING PT RECOMMENDED DIET/RESTRICTIONS. RD PROVIDED FLUID RESTRICTION, DIABETIC AND RENAL DIALYSIS DIET MEDICAL NUTRITION THERAPY. DAUGHTER ASKED QUESTIONS, RD ANSWERED AND FAMILY VERBALIZED UNDERSTANDING. EDUCATION MATERIALS PROVIDED TO FAMILY TO USE REFERENCE. DAUGHTER NOW AWARE OF PT CONDITION AND STATED SHE WILL COOK DIFFERENTLY TO MEET PT NUTRITIONAL NEEDS. Addendum: 09/08/19 at [address] Amended: Links added.
[2019-09-10 11:11] LABS: HEPATITIS A ANTIBODY IGM Negative (Negative); HEPATITIS B CORE IGM Negative (Negative); HEPATITIS Bs ANTIGEN SCREEN P Negative (Negative)
== END 2019-09-08 13:59 | disposition home or self-care (01) ==
LOC: EDH 05:05 → INTOOBSV 07:00 → EDHIP 07:00 → 2DH 12:45
PROVIDERS: ADMIT Internal Medicine Critical Care Medicine; ATTEND Internal Medicine Critical Care Medicine
DX: E87.70 Fluid overload, unspecified (principal); I20.0 Unstable angina; I12.0 Hypertensive chronic kidney disease with stage 5 chronic kidney disease or end stage renal disease; E11.22 Type 2 diabetes mellitus with diabetic chronic kidney disease; N18.6 End stage renal disease; D63.1 Anemia in chronic kidney disease; E11.65 Type 2 diabetes mellitus with hyperglycemia; E87.1 Hypo-osmolality and hyponatremia; C85.90 Non-Hodgkin lymphoma, unspecified, unspecified site; Z99.2 Dependence on renal dialysis; Z90.49 Acquired absence of other specified parts of digestive tract; Z90.710 Acquired absence of both cervix and uterus; Z79.82 Long term (current) use of aspirin; Z79.4 Long term (current) use of insulin; Z79.899 Other long term (current) drug therapy
CPT/HCPCS: 36415 ×2; 71045; 80048 ×2; 80074; 80076; 81001; 82550 ×3; 82948 ×7; 83036; 83874 ×2; 83880 ×2; 84484 ×3; 85025 ×2; 85610; 85730; 87804 ×2; 93005 ×3; 94664; 96372 ×2; 96374; 99284; G0378; J1815 ×4; J2405; 90935

== ENCOUNTER 2019-10-19 05:33 | Emergency (ER) | payer OTHER, MEDICARE ==
[2019-10-19] MEDS ORDERED: ONDANSETRON HCL 4 MG/2 ML VIAL ONE (06:09)
[2019-10-19] MEDS ORDERED: SODIUM CHLORIDE 0.9% 250 ML IV ONE (06:09)
[2019-10-19 06:11] LABS: BASOPHILS % (AUTO) 0.2 % (0.0-5.0); EOSINOPHILS % (AUTO) 2.5 % (0.0-8.0); HEMATOCRIT 34.1 % (36-48); LYMPHOCYTES % (AUTO) 6.5 % (21.0-51.0); MEAN CORPUSCULAR HEMOGLOBIN 29.1 pg (27.0-33.0); MEAN CORPUSCULAR HGB CONC 33.7 g/dL (32.0-36.0); MEAN CORPUSCULAR VOLUME 86.3 fL (79-99); MONOCYTES % (AUTO) 4.9 % (3.0-13.0); NEUTROPHILS % (AUTO) 85.3 % (40.0-77.0); PLATELET COUNT (AUTO) 218 K/uL (130-400); RED BLOOD CELL COUNT(AUTO) 3.95 MIL/uL (4.00-5.50); RED CELL DISTRIBUTION WIDTH 13.4 % (11.0-15.5); WHITE BLOOD COUNT (AUTO) 9.6 K/uL (4.8-10.8)
[2019-10-19 06:27] LABS: POTASSIUM 4.8 mmol/L (3.5-5.1)
[2019-10-19 06:32] LABS: ALBUMIN 2.8 g/dL (3.5-5.0); BILIRUBIN,DIRECT 0.1 mg/dL (0.0-0.3); BILIRUBIN,TOTAL 0.5 mg/dL (0.2-1.0); TOTAL PROTEIN, SERUM 6.3 g/dL (6.0-8.3)
== END 2019-10-19 10:34 | disposition home or self-care (01) ==
LOC: EDH 05:33
DX: K52.9 Noninfective gastroenteritis and colitis, unspecified (principal); Z88.6 Allergy status to analgesic agent; E13.22 Other specified diabetes mellitus with diabetic chronic kidney disease; I12.0 Hypertensive chronic kidney disease with stage 5 chronic kidney disease or end stage renal disease; N18.6 End stage renal disease; Z90.49 Acquired absence of other specified parts of digestive tract; Z90.710 Acquired absence of both cervix and uterus; Z98.890 Other specified postprocedural states
CPT/HCPCS: 36415; 74176; 80048; 80076; 82550; 84484; 85025; 93005; 96374; 99285; J2405; J7030

== ENCOUNTER 2020-02-07 20:48 | Observation (INO) | payer OTHER, MEDICARE ==
[~2020-02-07] VITALS: Ht 157.5 cm; Wt 61.1 kg
[2020-02-07 21:51] LABS: BASOPHILS % (AUTO) 0.6 % (0.0-5.0); EOSINOPHILS % (AUTO) 2.1 % (0.0-8.0); HEMATOCRIT 28.4 % (36-48); LYMPHOCYTES % (AUTO) 10.5 % (21.0-51.0); MEAN CORPUSCULAR HEMOGLOBIN 30.1 pg (27.0-33.0); MEAN CORPUSCULAR HGB CONC 33.8 g/dL (32.0-36.0); MONOCYTES % (AUTO) 6.6 % (3.0-13.0); NEUTROPHILS % (AUTO) 79.6 % (40.0-77.0); PLATELET COUNT (AUTO) 213 K/uL (130-400); RED BLOOD CELL COUNT(AUTO) 3.19 MIL/uL (4.00-5.50); RED CELL DISTRIBUTION WIDTH 13.4 % (11.0-15.5); WHITE BLOOD COUNT (AUTO) 7.2 K/uL (4.8-10.8)
[2020-02-07 22:04] LABS: INR 0.93 (0.85-1.15); PARTIAL THROMBOPLASTIN TIME 22.7 SEC (26.3-35.5); PROTHROMBIN TIME 10.1 SEC (9.6-11.6)
[2020-02-07 22:06] LABS: BILIRUBIN,TOTAL 0.4 mg/dL (0.2-1.0); CREATININE 4.1 mg/dL (0.5-1.5); POTASSIUM 4.1 mmol/L (3.5-5.1); TOTAL PROTEIN, SERUM 6.3 g/dL (6.0-8.3)
[2020-02-07] MEDS ORDERED: CLONIDINE HCL 0.1 MG TABLET ONE (22:56)
[2020-02-07] MEDS ORDERED: INSULIN HUMULIN R 100 UNIT/ML 3ML ONE (22:58)
[2020-02-08] VITALS (9 sets, daily range): BP systolic 131–220; BP diastolic 54–81
[2020-02-08] MEDS ORDERED: CLONIDINE HCL 0.1 MG TABLET PO PRN (01:00)
[2020-02-08] MEDS ORDERED: ONDANSETRON HCL 4 MG/2 ML VIAL IVP PRN (01:15)
[2020-02-08] MEDS ORDERED: ACETAMINOPHEN 325 MG TAB PO PRN (01:15)
[2020-02-08] MEDS: HYDRALAZINE HCL 20 MG/ML VIAL IV PRN ×2 (02:32→04:40)
--- NOTE | 2020-02-08 02:32 | NUR ---
NOTE MEDICATED WITH HYDRALAZINE FOR ELEVATED BP
[2020-02-08] MEDS ORDERED: INSU100I21 PO (03:00)
--- NOTE | 2020-02-08 04:40 | NUR ---
NOTE RECHECKED AND MEDICATED WITH HYDRALAZINE FOR ELEVATED BP.
[2020-02-08 05:14] LABS: HEMATOCRIT 30.9 % (36-48); MEAN CORPUSCULAR HEMOGLOBIN 29.9 pg (27.0-33.0); MEAN CORPUSCULAR HGB CONC 33.3 g/dL (32.0-36.0); MEAN CORPUSCULAR VOLUME 89.8 fL (79-99); RED BLOOD CELL COUNT(AUTO) 3.44 MIL/uL (4.00-5.50); RED CELL DISTRIBUTION WIDTH 13.5 % (11.0-15.5); WHITE BLOOD COUNT (AUTO) 8.8 K/uL (4.8-10.8)
--- NOTE | 2020-02-08 05:14 | NUR ---
NOTE PATIENT REPORTS FEELING NAUSEATED. CHECKED HER BP. MEDICATED WITH ZOFRAN AND CLONIDINE.
[2020-02-08 05:38] LABS: CREATININE 4.5 mg/dL (0.5-1.5); POTASSIUM 3.5 mmol/L (3.5-5.1)
--- NOTE | 2020-02-08 06:34 | NUR ---
NOTE GLUCOSE 432, TROPONIN 0.13 (PREV LESS THAN 0.04), PAGED ONCJUHI FOR MICHELLE. MAURISIO JOHN ANSWERED. NOTIFIED OF LAB RESULTS, ALSO NO INSULIN SCALE AVAILABLE FOR PATIENT, HOME MEDICATIONS, AND BP SINCE SHE ARRIVED FROM ED AND MEDICATIONS GIVEN. INCLUDING LATEST . PATIENT REPORTS FEELING COMFORTABLE AT THIS TIME. NO SOB, NO CHEST DISCOMFORT. ALSO THAT PATIENT REPORTS NOT HAVING TAKEN HER MEDICATIONS ALL DAY YESTERDAY. ORDERS RECEIVED AND ENTERED IN COMPUTER.
[2020-02-08] MEDS ORDERED: DEXTROSE 50%-WATER 50 ML DISP.SYRIN IV PRN (06:45)
[2020-02-08] MEDS ORDERED: PHARMACY COMMUNICATION MISC SCH (06:45)
[2020-02-08] MEDS ORDERED: GLUCAGON 1MG KIT 1 MG ML IM PRN (06:45)
[2020-02-08] MEDS: INSULIN HUMULIN R 100 UNIT/ML 3ML SQ SCH ×7 (07:14→20:33)
[2020-02-08] MEDS: GABAPENTIN 300 MG CAPSULE PO SCH ×3 (09:51→20:20)
[2020-02-08] MEDS: AMLODIPINE BESYLATE 5 MG TAB PO SCH (09:51)
[2020-02-08] MEDS: METOPROLOL TARTRATE 50 MG TAB PO SCH ×2 (09:51→20:20)
[2020-02-08] MEDS: CLONIDINE HCL 0.1 MG TABLET PO SCH ×2 (09:51→20:19)
[2020-02-08] MEDS ORDERED: HYDRALAZINE HCL 20 MG/ML VIAL IV PRN (10:15)
[2020-02-08] MEDS ORDERED: MAGNESIUM 2GM PREMIX 50ML 50 ML IV PRN (10:15)
--- NOTE | 2020-02-08 12:15 | NUR ---
I HAVE PAGED DR YANG IN REGARDS TO ORDER ABOUT DOING AN EXTRA DIALYSIS SESSION; PENDING CALL BACK
--- NOTE | 2020-02-08 12:32 | NUR ---
I RECEIVED CALL BACK FROM DR YANG AND ORDER TO DO DIALYSIS EXTRA SESSION TODAY FOR 2 HRS AND TO TAKE OFF 3 LITERS; I CALLED AND INFORMED ARTIST AGENT NURSE DIALYSIS SAUMYA.
--- NOTE | 2020-02-08 15:00 | NUR ---
dr cruz rounded on patient and i informed him of troponin of 0.15 and he stated that was fine;
--- NOTE | 2020-02-08 17:59 | NUR ---
cm note spoke to pt and states resides at home with spouse and daughter estther, pt ambulates with rolling walkr with seat and cane, has provider 4 1/2 hrs provider daily. pt goes to [facility] schedule with dr moreno, [facility] provider transports. [facility] no dc needs. dc plan back home at time of dc. Addendum: 02/08/20 at 1801 by MAUDE BARR CM Amended: Links added.
[2020-02-08] MEDS ORDERED: LATANOPROST 2.5 ML DROPS OP SCH (21:00)
[2020-02-08] MEDS ORDERED: INSULIN GLARGINE 100 UNITS/ML 10 ML VIAL SQ SCH (21:00)
[2020-02-09 04:07] LABS: BASOPHILS % (AUTO) 0.6 % (0.0-5.0); EOSINOPHILS % (AUTO) 3.1 % (0.0-8.0); HEMATOCRIT 27.1 % (36-48); LYMPHOCYTES % (AUTO) 17.2 % (21.0-51.0); MEAN CORPUSCULAR HEMOGLOBIN 28.9 pg (27.0-33.0); MEAN CORPUSCULAR HGB CONC 32.1 g/dL (32.0-36.0); MONOCYTES % (AUTO) 8.3 % (3.0-13.0); NEUTROPHILS % (AUTO) 70.2 % (40.0-77.0); PLATELET COUNT (AUTO) 215 K/uL (130-400); RED BLOOD CELL COUNT(AUTO) 3.01 MIL/uL (4.00-5.50); WHITE BLOOD COUNT (AUTO) 8.1 K/uL (4.8-10.8)
[2020-02-09 04:14] LABS: HEMOGLOBIN A1C 10.7 % (4.0-6.0)
[2020-02-09 04:27] LABS: ALBUMIN 2.7 g/dL (3.5-5.0); BILIRUBIN,TOTAL 0.4 mg/dL (0.2-1.0); CREATININE 5.6 mg/dL (0.5-1.5); PHOSPHORUS 6.8 mg/dL (2.5-4.9); POTASSIUM 3.8 mmol/L (3.5-5.1); TOTAL PROTEIN, SERUM 6.2 g/dL (6.0-8.3)
[2020-02-09 04:29] VITALS: BP 128/54
[2020-02-09 04:36] LABS: B-TYPE NATRIURETIC PEPTIDE 773 pg/mL (0-100)
[2020-02-09] MEDS: INSULIN HUMULIN R 100 UNIT/ML 3ML SQ SCH ×6 (07:02→16:28)
[2020-02-09 07:30] VITALS: BP 172/74
[2020-02-09] MEDS: METOPROLOL TARTRATE 50 MG TAB PO SCH (09:05)
[2020-02-09] MEDS: AMLODIPINE BESYLATE 5 MG TAB PO SCH (09:05)
[2020-02-09] MEDS: GABAPENTIN 300 MG CAPSULE PO SCH ×2 (09:05→13:55)
[2020-02-09] MEDS: CLONIDINE HCL 0.1 MG TABLET PO SCH (09:06)
[2020-02-09 11:30] VITALS: BP 168/60
[2020-02-09] MEDS ORDERED: AMLODIPINE BESYLATE 5 MG TAB PO SCH (11:45)
[2020-02-09 15:30] VITALS: BP 140/52
[2020-02-12 02:07] LABS: HEPATITIS A ANTIBODY IGM Negative (Negative); HEPATITIS B CORE IGM Negative (Negative); HEPATITIS Bs ANTIGEN SCREEN P Negative (Negative)
== END 2020-02-09 18:20 | disposition home or self-care (01) ==
LOC: EDH 20:48 → INTOOBSV 22:42 → EDHIP 22:42 → 4AH 02-08 00:42
PROVIDERS: ADMIT Internal Medicine Critical Care Medicine; ATTEND Internal Medicine Critical Care Medicine
DX: I16.0 Hypertensive urgency (principal); E87.70 Fluid overload, unspecified; E11.22 Type 2 diabetes mellitus with diabetic chronic kidney disease; N18.6 End stage renal disease; Z79.4 Long term (current) use of insulin; Z85.72 Personal history of non-Hodgkin lymphomas; Z90.710 Acquired absence of both cervix and uterus; Z99.2 Dependence on renal dialysis; Z79.899 Other long term (current) drug therapy; Z90.49 Acquired absence of other specified parts of digestive tract; Z88.6 Allergy status to analgesic agent
CPT/HCPCS: 36415 ×3; 71045; 80048; 80053 ×2; 80061; 80074; 82550; 82948 ×9; 83036; 83735; 83880; 84100; 84484 ×3; 85025 ×2; 85027; 85610; 85730; 90935; 93005 ×2; 93306; 93356; 96372 ×2; 96374; 96375; 96376; 99285; G0378 ×3; J0360 ×2; J1815 ×5; J2405

== ENCOUNTER 2020-05-29 06:59 | Day surgery (SDC) | payer OTHER, MEDICARE ==
[2020-05-29] VITALS (13 sets, daily range): BP systolic 110–155; BP diastolic 40–53
[~2020-05-29] VITALS: Ht 157.5 cm; Wt 62.1 kg
[~2020-05-29 06:59] MED LIST changes: +INSU100I21 PO; -SIMV-46 PO
[2020-05-29] MEDS ORDERED: SODIUM CHLORIDE 0.9% 1000ML 1,000 ML IV ONE (07:18)
[2020-05-29 07:52] LABS: CREATININE 4.9 mg/dL (0.5-1.5); POTASSIUM 3.6 mmol/L (3.5-5.1)
[2020-05-29] MEDS ORDERED: PROPOFOL 10 MG/ML 20ML VIAL IV ONE ×2 (08:04→08:20)
[2020-05-29] MEDS ORDERED: LIDOCAINE HCL-MPF 2% 5ML VIAL ONE (08:05)
[2020-05-29] MEDS ORDERED: ONDANSETRON HCL 4 MG/2 ML VIAL ONE (08:05)
[2020-05-29] MEDS ORDERED: GLYCOPYRROLATE 1 MG/5 ML SYRINGE ONE (08:05)
[2020-05-29] MEDS ORDERED: CETI-109 PO (09:30)
[2020-05-29] MEDS ORDERED: FAMO20TA8 PO (09:30)
[2020-06-09] MEDS ORDERED: ATOR20TA65 PO (19:18)
[2020-06-09] MEDS ORDERED: CLOP75TA14 PO (19:18)
[2020-06-09] MEDS ORDERED: APIX2.5T PO (19:18)
[2020-06-09] MEDS ORDERED: FAMO20TA8 PO (19:18)
[2020-06-09] MEDS ORDERED: INSLAN SQ (19:18)
[2020-06-09] MEDS ORDERED: LOSA100T2 PO (19:18)
[2020-06-09] MEDS ORDERED: AMLO5TAB4 PO (19:18)
[2020-06-09] MEDS ORDERED: METO25 PO (19:18)
== END 2020-05-29 09:45 ==
LOC: ENDO 06:59 → DAH 06:59 → ENDO 09:45
PROVIDERS: ATTEND Internal Medicine Gastroenterology
DX: R19.7 Diarrhea, unspecified (principal); K29.50 Unspecified chronic gastritis without bleeding; K31.7 Polyp of stomach and duodenum; K63.5 Polyp of colon; K57.30 Diverticulosis of large intestine without perforation or abscess without bleeding; K22.2 Esophageal obstruction; K21.9 Gastro-esophageal reflux disease without esophagitis; I12.0 Hypertensive chronic kidney disease with stage 5 chronic kidney disease or end stage renal disease; E11.22 Type 2 diabetes mellitus with diabetic chronic kidney disease; N18.6 End stage renal disease; E78.5 Hyperlipidemia, unspecified; Z20.828 Contact with and (suspected) exposure to other viral communicable diseases
CPT/HCPCS: 36415; 43239; 43248; 45380; 45385; 80048; 82948; 88305; 88342; A4215; A4221; A4222; A4223; A4606; A4620; A4649; A4663; C9803; J2405; J2704 ×2; J3490 ×2; J7030; U0003

== ENCOUNTER 2020-05-31 15:45 | Inpatient (IN) | payer OTHER, MEDICARE ==
[~2020-05-31] VITALS: Ht 157.5 cm; Wt 60.6 kg
[~2020-05-31 15:45] MED LIST changes: +CETI-89 PO; +FAMO20TA8 PO
[2020-05-31] MEDS ORDERED: IPRATROPIUM/ALBUTEROL SULFATE 3 ML SOLUTION IH ONE (16:02)
[2020-05-31] MEDS ORDERED: ALBUTEROL INHALER 90MCG/INH IH ONE (16:05)
[2020-05-31 16:13] LABS: BASOPHILS % (AUTO) 0.4 % (0.0-5.0); EOSINOPHILS % (AUTO) 1.6 % (0.0-8.0); HEMATOCRIT 32.2 % (36-48); LYMPHOCYTES % (AUTO) 14.6 % (21.0-51.0); MEAN CORPUSCULAR HEMOGLOBIN 28.9 pg (27.0-33.0); MEAN CORPUSCULAR HGB CONC 33.5 g/dL (32.0-36.0); MEAN CORPUSCULAR VOLUME 86.1 fL (79-99); MONOCYTES % (AUTO) 5.1 % (3.0-13.0); NEUTROPHILS % (AUTO) 77.5 % (40.0-77.0); PLATELET COUNT (AUTO) 266 K/uL (130-400); RED BLOOD CELL COUNT(AUTO) 3.74 MIL/uL (4.00-5.50); RED CELL DISTRIBUTION WIDTH 13.2 % (11.0-15.5); WHITE BLOOD COUNT (AUTO) 15.1 K/uL (4.8-10.8)
[2020-05-31 16:25] LABS: CREATININE 5.8 mg/dL (0.5-1.5); POTASSIUM 4.1 mmol/L (3.5-5.1)
[2020-05-31 16:29] LABS: ALBUMIN 3.6 g/dL (3.5-5.0); BILIRUBIN,TOTAL 0.6 mg/dL (0.2-1.0); TOTAL PROTEIN, SERUM 7.8 g/dL (6.0-8.3)
[2020-05-31] MEDS ORDERED: VANCOMYCIN 1GM+NS 250ML 250 ML IV ONE (17:14)
[2020-05-31] MEDS ORDERED: ZOSYN 3.375GM+NS 50ML 50 ML IV ONE (17:14)
[2020-05-31] MEDS ORDERED: METOCLOPRAMIDE 10 MG/2 ML VIAL IVP PRN (19:15)
[2020-05-31] MEDS ORDERED: GLUCAGON 1MG KIT 1 MG ML IM PRN (19:15)
[2020-05-31] MEDS ORDERED: DEXTROSE 50%-WATER 50 ML DISP.SYRIN IV PRN (19:15)
[2020-05-31] MEDS ORDERED: TRAMADOL HCL 50 MG TABLET PO PRN (19:15)
[2020-05-31] MEDS ORDERED: ONDANSETRON HCL 4 MG/2 ML VIAL IVP PRN (19:15)
[2020-05-31] MEDS ORDERED: VANCOMYCIN PROTOCOL PER PHARMACY IV SCH (19:15)
[2020-05-31] MEDS ORDERED: INSULIN R PO SS1 SQ SCH (21:00)
[2020-05-31] MEDS: ZOSYN 3.375GM+NS 50ML 50 ML IV SCH (21:00)
[2020-06-01] MEDS ORDERED: ZOSYN 3.375GM+NS 50ML 50 ML IV ONE ×2 (05:45→09:24)
[2020-06-01] MEDS ORDERED: HYDRALAZINE HCL 20 MG/ML VIAL ONE ×2 (06:54→09:24)
[2020-06-01] MEDS: FAMOTIDINE 20MG TAB 20 MG TAB PO SCH (09:00)
[2020-06-01] MEDS: ZOSYN 3.375GM+NS 50ML 50 ML IV SCH ×2 (09:00→21:49)
[2020-06-01] MEDS ORDERED: TRAMADOL HCL 50 MG TABLET ONE (09:25)
[2020-06-01] MEDS ORDERED: FAMOTIDINE/PF 20 MG/2 ML VIAL IV ONE (09:25)
[2020-06-01] MEDS ORDERED: INSULIN HUMULIN R 100 UNIT/ML 3ML ONE (12:09)
[2020-06-01] MEDS ORDERED: GUAIFENESIN-DM 200/20 MG 10 ML PO PRN (15:15)
[2020-06-01] MEDS ORDERED: ACETAMINOPHEN 325 MG TAB PO PRN (15:15)
[2020-06-01] MEDS ORDERED: LACTULOSE 20 GM/30 ML UDCUP PO PRN (15:15)
[2020-06-01] MEDS ORDERED: DEXTROSE 50%-WATER 50 ML DISP.SYRIN IV PRN (15:30)
[2020-06-01] MEDS ORDERED: GLUCAGON 1MG KIT 1 MG ML IM PRN (15:30)
--- NOTE | 2020-06-01 15:50 | NUR ---
patient still in ER, department awaiting for patient to be transferred to medical floor in order to be able to initiate skilled Physical Therapy Evaluation. Addendum: 06/01/20 at 1551 by LATA LLANOS, PT PT Amended: Links added.
[2020-06-01] MEDS: FUROSEMIDE 10 MG/ML 2ML VIAL IV SCH ×2 (16:00→23:43)
[2020-06-01] MEDS: INSULIN HUMULIN R 100 UNIT/ML 3ML SQ SCH ×2 (16:30→21:00)
[2020-06-01] MEDS ORDERED: FUROSEMIDE 10 MG/ML 2ML VIAL ONE (16:34)
[2020-06-01 17:56] LABS: ABG OXYGEN SATURATION 96.5 % (95.0-99.0); ABG PCO2 43 mmHg (32-45)
[2020-06-01 19:36] LABS: ALBUMIN 3.1 g/dL (3.5-5.0); BILIRUBIN,DIRECT 0.2 mg/dL (0.0-0.3); BILIRUBIN,TOTAL 0.5 mg/dL (0.2-1.0); TOTAL PROTEIN, SERUM 6.9 g/dL (6.0-8.3)
[2020-06-01] MEDS: HEPARIN SODIUM 5000UNIT/ML 1ML VIAL SQ SCH (21:50)
[2020-06-01] MEDS ORDERED: METO25TA6 PO (23:30)
[2020-06-01] MEDS ORDERED: INSU100V SQ (23:30)
[2020-06-02] VITALS (9 sets, daily range): BP systolic 149–193; BP diastolic 50–77
[2020-06-02 06:10] LABS: BASOPHILS % (AUTO) 0.7 % (0.0-5.0); EOSINOPHILS % (AUTO) 2.3 % (0.0-8.0); HEMATOCRIT 27.9 % (36-48); MEAN CORPUSCULAR HEMOGLOBIN 28.5 pg (27.0-33.0); MEAN CORPUSCULAR VOLUME 86.4 fL (79-99); MONOCYTES % (AUTO) 5.2 % (3.0-13.0); PLATELET COUNT (AUTO) 205 K/uL (130-400); RED BLOOD CELL COUNT(AUTO) 3.23 MIL/uL (4.00-5.50); RED CELL DISTRIBUTION WIDTH 13.3 % (11.0-15.5); WHITE BLOOD COUNT (AUTO) 9.5 K/uL (4.8-10.8)
[2020-06-02 06:31] LABS: CREATININE 5.3 mg/dL (0.5-1.5); PHOSPHORUS 5.2 mg/dL (2.5-4.9); POTASSIUM 4.4 mmol/L (3.5-5.1); THYROID STIMULATING HORMONE 1.69 uIU/mL (0.36-3.74)
[2020-06-02 06:36] LABS: HEMOGLOBIN A1C 10.4 % (4.0-6.0)
[2020-06-02] MEDS: INSULIN HUMULIN R 100 UNIT/ML 3ML SQ SCH ×4 (06:47→21:14)
[2020-06-02] MEDS: FUROSEMIDE 10 MG/ML 2ML VIAL IV SCH (08:24)
[2020-06-02] MEDS: FOLIC ACID/VITAMIN B COMP W-C 1 CAP TAB PO SCH (08:25)
[2020-06-02] MEDS: FAMOTIDINE 20MG TAB 20 MG TAB PO SCH (08:25)
[2020-06-02] MEDS: ZOSYN 3.375GM+NS 50ML 50 ML IV SCH ×2 (08:25→21:12)
[2020-06-02] MEDS: HEPARIN SODIUM 5000UNIT/ML 1ML VIAL SQ SCH ×2 (08:27→21:14)
--- NOTE | 2020-06-02 11:08 | NUR ---
DC PLAN VISITED WITH PATIENT. PATIENT GETTING DIALYSIS. CALLED DAUGHTER. SAID PATIENT LIVES WITH HER AND SHE DOES ALL NEEDS OF MOM. PATIENT HAS A WALKER BUT DOES NOT USE. SAID GOES TO [facility] TTS 515AM. SAID WAS NEGATIVE ON THE AND RETESTED ONCE ADMITTED. Addendum: 06/02/20 at 1110 by CARLOS ENRIQUE SANCHEZ RN CM Amended: Links added.
[2020-06-02] MEDS: HYDRALAZINE HCL 20 MG/ML VIAL IV PRN ×2 (11:10→20:42)
[2020-06-02] MEDS ORDERED: METOPROLOL TARTRATE 25 MG TAB PO ONE (14:00)
--- NOTE | 2020-06-02 14:02 | NUR ---
Patient was receiving Dialysis this PM, per AISHA Giles patient is able to get OOB to bathroom with CGA for balance and safety.Will attempt to initiate skilled Physical Therapy tomorrow. Addendum: 06/02/20 at 1406 by LATA LLANOS, PT PT Amended: Links added.
[2020-06-02] MEDS ORDERED: METOPROLOL TARTRATE 25 MG TAB ONE (14:06)
[2020-06-02] MEDS ORDERED: DILTIAZEM HCL 125 MG/25 ML 125 MG in SODIUM CHLORIDE 0.9% 100 ML IV SCH (14:15)
--- NOTE | 2020-06-02 18:01 | NUR ---
pt aox4. s/p dialysis this morning. during dialysis patient had an episode of afib rhythm sustaining for couple hurs. CUSTOM CAR BUILDER health information clerk was notified, environmental sampler was notified, new ordered obtained. Pt was given lopressor 25 mg po, pt converted to normal sinu rhythm. cardizem protocol also was put in place in case need dannie. pt is now stable, eating her dinner, covered per insulin sliding scale. iv abx given and tolerated. oob to bathroom with standby assistance.
[2020-06-02] MEDS: METOPROLOL TARTRATE 25 MG TAB PO SCH (20:41)
--- NOTE | 2020-06-02 22:21 | NUR ---
PT TRANSFER PT TRANSFERRED FROM ROOM 221 TO ROOM 322 VIA BED WITH BELONGINGS. PT A/OX3, NAD NOTED. REPORT GIVEN TO AISHA DANIEL, CARE OF PT TRANSFERRED
--- NOTE | 2020-06-02 22:25 | NUR ---
RECEIVED PT RECEIVED FROM SECOND FLOOR NURSES, AAOX3. DENIES ANY PAINS NOR DISCOMFORT AT THIS TIME. V/S MONITORED BY PCP, STABLE. KEPT COMFORTABLE IN BED. ORIENTED TO ROOM AND UNIT. IN FOR MORE CARE AND MANAGEMENT.
--- NOTE | 2020-06-03 02:00 | NUR ---
ROUNDS PT RESTING WELL, FAIRLY ASLEEP. NO DISTRESS NOTED. KEPT UNDISTURBED FOR NOW. WILL MONITOR PT.
[2020-06-03 04:00] VITALS: BP 159/64
[2020-06-03 05:01] LABS: BASOPHILS % (AUTO) 0.8 % (0.0-5.0); EOSINOPHILS % (AUTO) 3.5 % (0.0-8.0); HEMATOCRIT 28.4 % (36-48); LYMPHOCYTES % (AUTO) 16.1 % (21.0-51.0); MEAN CORPUSCULAR HEMOGLOBIN 28.4 pg (27.0-33.0); MEAN CORPUSCULAR HGB CONC 32.7 g/dL (32.0-36.0); MEAN CORPUSCULAR VOLUME 86.9 fL (79-99); MONOCYTES % (AUTO) 8.6 % (3.0-13.0); NEUTROPHILS % (AUTO) 70.3 % (40.0-77.0); PLATELET COUNT (AUTO) 258 K/uL (130-400); RED BLOOD CELL COUNT(AUTO) 3.27 MIL/uL (4.00-5.50); RED CELL DISTRIBUTION WIDTH 13.3 % (11.0-15.5); WHITE BLOOD COUNT (AUTO) 8.5 K/uL (4.8-10.8)
--- NOTE | 2020-06-03 05:16 | NUR ---
ROUNDS PT RESTING WELL, NO DISTRESS NOTED. NO CONCERNS VERBALIZED. KEPT RESTED AND COMFORTABLE. FOR MORE CARE.
[2020-06-03 05:24] LABS: ALBUMIN 2.9 g/dL (3.5-5.0); BILIRUBIN,TOTAL 0.6 mg/dL (0.2-1.0); CREATININE 4.1 mg/dL (0.5-1.5); POTASSIUM 3.8 mmol/L (3.5-5.1); TOTAL PROTEIN, SERUM 6.4 g/dL (6.0-8.3)
[2020-06-03] MEDS: INSULIN HUMULIN R 100 UNIT/ML 3ML SQ SCH ×3 (06:06→16:30)
[2020-06-03 08:00] VITALS: BP 191/65
[2020-06-03 08:15] LABS: HEPATITIS A ANTIBODY IGM Negative (Negative); HEPATITIS B CORE IGM Negative (Negative); HEPATITIS Bs ANTIGEN SCREEN P Negative (Negative)
[2020-06-03] MEDS: HEPARIN SODIUM 5000UNIT/ML 1ML VIAL SQ SCH (08:39)
[2020-06-03] MEDS ORDERED: VANCOMYCIN 500MG+NS 100ML 100 ML IV SCH (09:00)
[2020-06-03] MEDS: FOLIC ACID/VITAMIN B COMP W-C 1 CAP TAB PO SCH (09:08)
[2020-06-03] MEDS: FAMOTIDINE 20MG TAB 20 MG TAB PO SCH (09:08)
[2020-06-03] MEDS: METOPROLOL TARTRATE 25 MG TAB PO SCH (09:09)
[2020-06-03] MEDS: ZOSYN 3.375GM+NS 50ML 50 ML IV SCH (09:09)
[2020-06-03 11:59] VITALS: BP 186/69
[2020-06-03] MEDS ORDERED: VANCOMYCIN 1GM+NS 250ML 250 ML IV SCH (12:15)
--- NOTE | 2020-06-03 14:29 | NUR ---
CM NOTE/ [facility] CALLED TO REPORT NEGATIVE COVID RESULT. PER RONALD, TO FAX REPORT TO HER. REPORT ALONG WITH RECENT H&P FAXED TO THE LOCAL RENAL HERE IN [facility], CONFIRMED RECEIVED WITH FAX RECEIPT.
[2020-06-03] MEDS ORDERED: METO25 PO (15:43)
[2020-06-03 16:00] VITALS: BP 107/64
--- NOTE | 2020-06-03 18:40 | NUR ---
DISCHARGE PATIENT / DAUGHTER (YASEMIN) GIVEN DISCHARGE INSTRUCTIONS VIA TEACH BACK. 20G PIV TO LAC DISCONTINUED, TIP INTACT. E-RX TO [facility] FOR METOPROLOL 25MG 1 TAB PO BID. PATIENT TO FOLLOW UP WITH CORNELIO MORAN AT [facility] ON MONDAY THE AT 1215 FOR POSSIBLE BLOOD THINNER DUE TO A-FIB. PATIENT STABLE AT THIS TIME, WHEELED TO [facility] FOR DISCHARGE BY AMBROSE BARGER.
[2020-06-05] MEDS ORDERED: VANCOMYCIN 500MG+NS 100ML 100 ML IV SCH (09:00)
[2020-06-09] MEDS ORDERED: CLOP75TA14 PO (19:18)
[2020-06-09] MEDS ORDERED: AMLO5TAB4 PO (19:18)
[2020-06-09] MEDS ORDERED: APIX2.5T PO (19:18)
[2020-06-09] MEDS ORDERED: LOSA100T2 PO (19:18)
[2020-06-09] MEDS ORDERED: ATOR20TA65 PO (19:18)
[2020-06-09] MEDS ORDERED: INSLAN SQ (19:18)
[2020-06-09] MEDS ORDERED: FAMO20TA8 PO (19:18)
[2020-06-09] MEDS ORDERED: METO25 PO (19:18)
== END 2020-06-03 18:40 | disposition home or self-care (01) | DRG 193 ==
LOC: EDH 15:45 → EDHIP 18:20 → 2DH 06-01 20:20 → 3DH 06-02 22:12
PROVIDERS: ADMIT Internal Medicine Critical Care Medicine; ATTEND Internal Medicine Critical Care Medicine
PROC: 5A1D70Z Performance of Urinary Filtration, Intermittent, Less than 6 Hours Per Day (ICD-10-PCS; principal; 2020-05-31)
DX: J15.9 Unspecified bacterial pneumonia (principal); N18.6 End stage renal disease; J96.01 Acute respiratory failure with hypoxia; J98.11 Atelectasis; I13.2 Hypertensive heart and chronic kidney disease with heart failure and with stage 5 chronic kidney disease, or end stage renal disease; E87.70 Fluid overload, unspecified; E11.22 Type 2 diabetes mellitus with diabetic chronic kidney disease; E11.649 Type 2 diabetes mellitus with hypoglycemia without coma; R79.89 Other specified abnormal findings of blood chemistry; E11.51 Type 2 diabetes mellitus with diabetic peripheral angiopathy without gangrene; E78.5 Hyperlipidemia, unspecified; I50.9 Heart failure, unspecified; I48.0 Paroxysmal atrial fibrillation; Z20.828 Contact with and (suspected) exposure to other viral communicable diseases; Z99.2 Dependence on renal dialysis; Z85.72 Personal history of non-Hodgkin lymphomas; Z88.6 Allergy status to analgesic agent; Z90.710 Acquired absence of both cervix and uterus
CPT/HCPCS: 36415; 36600; 43239; 43248; 45380; 45385; 71045; 74176; 80048; 80053; 80074; 80076; 80202; 82803; 82948; 83036; 83605; 83690; 84100; 84443; 84484; 85025; 85378; 87040; 87426; 87804; 88305; 88342; 90935; 93005; 97039; 99291; A4606; G0378; J0360; J1644; J1815; J1940; J2405; J2543; J2704; J2765; J3370; J3490; J7030; U0003

== ENCOUNTER 2020-06-05 15:46 | Inpatient (IN) | payer OTHER, MEDICARE ==
[~2020-06-05] VITALS: Ht 157.5 cm; Wt 59.5 kg
[~2020-06-05 15:46] MED LIST changes: +INSU100V SQ; +METO25 PO; +METO25TA6 PO
[2020-06-05 16:28] LABS: BASOPHILS % (AUTO) 0.9 % (0.0-5.0); EOSINOPHILS % (AUTO) 3.3 % (0.0-8.0); HEMATOCRIT 28.3 % (36-48); LYMPHOCYTES % (AUTO) 20.1 % (21.0-51.0); MEAN CORPUSCULAR HEMOGLOBIN 29.2 pg (27.0-33.0); MEAN CORPUSCULAR HGB CONC 32.9 g/dL (32.0-36.0); MEAN CORPUSCULAR VOLUME 88.7 fL (79-99); MONOCYTES % (AUTO) 9.2 % (3.0-13.0); NEUTROPHILS % (AUTO) 65.6 % (40.0-77.0); PLATELET COUNT (AUTO) 220 K/uL (130-400); RED BLOOD CELL COUNT(AUTO) 3.19 MIL/uL (4.00-5.50); RED CELL DISTRIBUTION WIDTH 13.4 % (11.0-15.5); WHITE BLOOD COUNT (AUTO) 6.4 K/uL (4.8-10.8)
[2020-06-05 16:45] LABS: ALBUMIN 2.9 g/dL (3.5-5.0); BILIRUBIN,TOTAL 0.3 mg/dL (0.2-1.0); CREATININE 6.5 mg/dL (0.5-1.5); MAGNESIUM 2.1 mg/dL (1.80-2.40); POTASSIUM 3.9 mmol/L (3.5-5.1); TOTAL PROTEIN, SERUM 6.3 g/dL (6.0-8.3)
[2020-06-05 16:52] LABS: B-TYPE NATRIURETIC PEPTIDE 2000 pg/mL (0-100)
[2020-06-05] MEDS ORDERED: HEPARIN 25000 UNITS/250 ML D5W 250 ML IV ONE (17:30)
[2020-06-05] MEDS ORDERED: HEPARIN SODIUM 5000UNIT/ML 1ML VIAL ONE (17:31)
[2020-06-05] MEDS ORDERED: MAGNESIUM 2GM PREMIX 50ML 50 ML IV ONE (17:52)
[2020-06-05 17:53] LABS: INR 0.95 (0.85-1.15); PARTIAL THROMBOPLASTIN TIME 25.4 SEC (26.3-35.5); PROTHROMBIN TIME 10.3 SEC (9.6-11.6)
[2020-06-05] MEDS ORDERED: MAGNESIUM 2GM PREMIX 50ML 50 ML IV SCH (19:30)
[2020-06-05] MEDS ORDERED: HEPARIN 25000 UNITS/250 ML D5W 250 ML IV PRN (19:30)
[2020-06-05] MEDS ORDERED: TICAGRELOR 90 MG TABLET PO SCH (20:00)
[2020-06-05] MEDS ORDERED: CLONIDINE HCL 0.1 MG TABLET ONE (20:12)
[2020-06-05] MEDS ORDERED: METOPROLOL TARTRATE 25 MG TAB ONE (20:12)
[2020-06-05] MEDS ORDERED: TICAGRELOR 90 MG TABLET ONE (20:12)
[2020-06-05] MEDS ORDERED: INSULIN HUMULIN R 100 UNIT/ML 3ML ONE (20:49)
[2020-06-05] MEDS: METOPROLOL TARTRATE 25 MG TAB PO SCH (21:00)
[2020-06-05] MEDS ORDERED: DiphenhydrAMINE HCL 50 MG/ML VIAL IVP PRN (21:00)
[2020-06-05] MEDS ORDERED: METHYLPREDNISOLONE SOD SUCC 125MG/2ML VIAL IVP SCH ×2 (21:00→22:00)
[2020-06-05] MEDS ORDERED: [UNRECOGNIZED DRUG - OTHER] MISC PRN ×2 (21:00→22:00)
[2020-06-05] MEDS ORDERED: INSULIN HUMULIN R 100 UNIT/ML 3ML SQ SCH (21:00)
[2020-06-05 21:37] VITALS: BP 172/57
[2020-06-05 21:43] VITALS: BP 174/59
[2020-06-05 22:00] VITALS: BP 155/42
[2020-06-05 22:20] VITALS: BP 162/47
[2020-06-05 23:00] VITALS: BP 142/46
[2020-06-05 23:30] VITALS: BP 155/48
[2020-06-06] VITALS (28 sets, daily range): BP systolic 86–185; BP diastolic 42–72
--- NOTE | 2020-06-06 | NUR ---
2136 Admitted from ER via stretcher. Oriented to room, call light, bed controls etc. No c/o pain, sob. RSR, rate 60's per bedside color television console monitor. Discussed plan of care- Aspirin desenitization. States aware, Dr Comer spoke with her in ER. Given ASA 0.1mg, 0.3,mg, 1mg, and 3 mg doses. Refused any more doses of aspirin. States she is not supposed to take aspirin and it is making her anxious to take it. VSS. No change in v/s, neuro v/s. [address] Comer to inform him, Dr Viramontes correctional treatment specialist. PTT level drawn to regulate Heparin drip. Call light and needed items placed readily at hand.
[2020-06-06] MEDS ORDERED: ASPIRIN 81MG TAB.CHEW PO SCH ×8 (00:20→15:40)
[2020-06-06] MEDS ORDERED: ASPIRIN 325 MG TABLET PO SCH ×3 (01:00→16:00)
--- NOTE | 2020-06-06 02:00 | NUR ---
Patient prepped earlier for left heart cath in AM. NPO after midnight. PTT therapeutic level, Heparin drip continues at 1100 units/hr.
[2020-06-06] MEDS: INSULIN R PO SS2 SQ SCH ×4 (06:40→21:00)
[2020-06-06 06:43] LABS: BASOPHILS % (AUTO) 0.8 % (0.0-5.0); EOSINOPHILS % (AUTO) 0.2 % (0.0-8.0); HEMATOCRIT 30.8 % (36-48); LYMPHOCYTES % (AUTO) 7.9 % (21.0-51.0); MEAN CORPUSCULAR HEMOGLOBIN 28.8 pg (27.0-33.0); MEAN CORPUSCULAR HGB CONC 33.4 g/dL (32.0-36.0); MONOCYTES % (AUTO) 1.1 % (3.0-13.0); NEUTROPHILS % (AUTO) 88.4 % (40.0-77.0); PLATELET COUNT (AUTO) 214 K/uL (130-400); RED BLOOD CELL COUNT(AUTO) 3.58 MIL/uL (4.00-5.50); RED CELL DISTRIBUTION WIDTH 13.1 % (11.0-15.5); WHITE BLOOD COUNT (AUTO) 6.2 K/uL (4.8-10.8)
[2020-06-06 06:52] LABS: CREATININE 7.2 mg/dL (0.5-1.5); POTASSIUM 4.2 mmol/L (3.5-5.1)
[2020-06-06] MEDS: FAMOTIDINE 20MG TAB 20 MG TAB PO SCH (07:46)
[2020-06-06] MEDS: AMLODIPINE BESYLATE 5 MG TAB PO SCH (07:46)
[2020-06-06] MEDS ORDERED: LABETALOL 20 MG/4 ML DISP.SYRIN IV PRN (08:30)
[2020-06-06] MEDS: LOSARTAN 100 MG TABLET PO SCH (08:48)
[2020-06-06] MEDS: METOPROLOL TARTRATE 25 MG TAB PO SCH ×2 (08:48→21:29)
[2020-06-06] MEDS ORDERED: NITROGLYCERIN 0.4 MG SL TAB SL PRN (09:15)
[2020-06-06] MEDS ORDERED: HYDROCODONE/ACETAMINOPHEN 5/325 MG TAB PO PRN (09:15)
[2020-06-06] MEDS: ATORVASTATIN CALCIUM 20 MG TABLET PO SCH (09:21)
[2020-06-06] MEDS: GABAPENTIN 300 MG CAPSULE PO SCH ×3 (09:22→21:29)
[2020-06-06] MEDS: CLONIDINE HCL 0.1 MG TABLET PO SCH ×2 (09:22→21:29)
[2020-06-06] MEDS: INSULIN GLARGINE 100 UNITS/ML 10 ML VIAL SQ SCH ×2 (09:25→21:57)
[2020-06-06] MEDS: CETIRIZINE HCL 5 MG TABLET PO SCH (09:27)
[2020-06-06] MEDS ORDERED: METHYLPREDNISOLONE SOD SUCC 125MG/2ML VIAL IVP SCH ×2 (11:40→12:40)
[2020-06-06] MEDS ORDERED: [UNRECOGNIZED DRUG - OTHER] MISC SCH ×2 (12:00→13:00)
--- NOTE | 2020-06-06 14:45 | NUR ---
Report given to Jw Finley RN
--- NOTE | 2020-06-06 14:45 | NUR ---
Tolerating Aspiration desensitization, already receiving 162 MG of ASA, no signs of adverse reactions noted
--- NOTE | 2020-06-06 14:46 | NUR ---
INITIAL SW spoke to patient's daughter, Diana Vasquez. Patient lives with spouse and daughter. She has no home services. Dialysis: TTS at 5:15am at [facility] in [place]. Family helps transport patient to and from treatments. DME: rollator, shower chair, BOM, glucometer (uses insulin). Patient needs help with ADL's and doesn't drive. PCP is Dr. Gertrude Kraus. Pharmacy is [facility] on [address] [place] [address]. No safety concerns voiced about going home. DCP is home. Addendum: 06/06/20 at 1449 by GEOVANNY FLANAGAN Amended: Links added.
[2020-06-06] MEDS: LATANOPROST 2.5 ML DROPS OP SCH (21:29)
[2020-06-07] VITALS (22 sets, daily range): BP systolic 87–164; BP diastolic 30–89
--- NOTE | 2020-06-07 00:14 | NUR ---
NPO FOR PROCEDURE LATER TODAY AND REMINDED OF THIS.
[2020-06-07 03:35] LABS: HEMATOCRIT 26.4 % (36-48); MEAN CORPUSCULAR HEMOGLOBIN 28.3 pg (27.0-33.0); RED BLOOD CELL COUNT(AUTO) 3.07 MIL/uL (4.00-5.50); RED CELL DISTRIBUTION WIDTH 13.4 % (11.0-15.5); WHITE BLOOD COUNT (AUTO) 9.7 K/uL (4.8-10.8)
[2020-06-07 03:49] LABS: INR 1.01 (0.85-1.15); PARTIAL THROMBOPLASTIN TIME 76.9 SEC (26.3-35.5); PROTHROMBIN TIME 10.9 SEC (9.6-11.6)
[2020-06-07 04:06] LABS: CREATININE 4.3 mg/dL (0.5-1.5); MAGNESIUM 2.1 mg/dL (1.80-2.40); PHOSPHORUS 4.8 mg/dL (2.5-4.9); POTASSIUM 3.5 mmol/L (3.5-5.1); THYROID STIMULATING HORMONE 0.43 uIU/mL (0.36-3.74); URIC ACID 3.6 mg/dL (2.6-7.2)
[2020-06-07 04:36] LABS: TROPONIN I 4.59 ng/mL (0.00-0.06)
[2020-06-07] MEDS: INSULIN R PO SS2 SQ SCH ×4 (05:53→21:06)
[2020-06-07] MEDS: INSULIN GLARGINE 100 UNITS/ML 10 ML VIAL SQ SCH ×2 (05:53→21:08)
[2020-06-07] MEDS ORDERED: LIDOCAINE HCL 2% 20ML ONE (08:51)
[2020-06-07] MEDS ORDERED: NITROGLYCERIN 2 MG/VIAL VIAL IV ONE (08:51)
[2020-06-07] MEDS ORDERED: IOHEXOL-350 50ML VIAL IV ONE (08:51)
[2020-06-07] MEDS ORDERED: HEPARIN SODIUM 1000UNIT/ML 10ML VIAL ONE (08:51)
[2020-06-07] MEDS ORDERED: IOHEXOL 350 MG/ML 100ML INFUS..BTL IV ONE ×2 (08:51→09:11)
[2020-06-07] MEDS ORDERED: BIVALIRUDIN 250 MG/VIAL IV ONE (08:54)
[2020-06-07] MEDS: GABAPENTIN 300 MG CAPSULE PO SCH ×3 (09:00→21:33)
[2020-06-07] MEDS: METOPROLOL TARTRATE 25 MG TAB PO SCH ×2 (09:00→21:33)
--- NOTE | 2020-06-07 09:00 | NUR ---
PATIENT TAKEN TO NUTRITION FACULTY MEMBER WITH RN.
[2020-06-07] MEDS ORDERED: MIDAZOLAM HCL 1 MG/ML 2ML VIAL ONE (09:11)
[2020-06-07] MEDS ORDERED: FENTANYL CITRATE PF 50 MCG/1 ML 2ML VIAL ONE (09:11)
[2020-06-07] MEDS ORDERED: HYDRALAZINE HCL 20 MG/ML VIAL ONE (10:00)
[2020-06-07] MEDS ORDERED: ASPIRIN 81MG TAB.CHEW PO SCH (11:00)
[2020-06-07] MEDS: LOSARTAN 100 MG TABLET PO SCH (11:20)
[2020-06-07] MEDS: AMLODIPINE BESYLATE 5 MG TAB PO SCH (11:20)
[2020-06-07] MEDS: CLONIDINE HCL 0.1 MG TABLET PO SCH ×2 (11:21→21:39)
[2020-06-07] MEDS: FAMOTIDINE 20MG TAB 20 MG TAB PO SCH (11:21)
[2020-06-07] MEDS: CETIRIZINE HCL 5 MG TABLET PO SCH (11:21)
[2020-06-07] MEDS: ATORVASTATIN CALCIUM 20 MG TABLET PO SCH (11:21)
--- NOTE | 2020-06-07 16:49 | NUR ---
PATIENT TAKEN TO [facility] BY WHEELCHAIR WITH ALL BELONGINGS, CELL PHONE AND PURSE. DENIES PAIN/ CHEST PRESSURE AT TIME OF TRANSFER. rEPORT WAS CALLED AT 1600 TO MALIK LEONARD.
[2020-06-07] MEDS: TICAGRELOR 90 MG TABLET PO SCH (21:33)
[2020-06-07] MEDS: APIXABAN 2.5 MG TABLET PO SCH (21:39)
[2020-06-07] MEDS: LATANOPROST 2.5 ML DROPS OP SCH (21:42)
[2020-06-08] MEDS ORDERED: ALPRAZOLAM 0.25 MG TABLET PO PRN
[2020-06-08] MEDS ORDERED: ALPRAZOLAM 0.25 MG TABLET ONE (00:05)
[2020-06-08 03:27] VITALS: BP 159/52
[2020-06-08] MEDS ORDERED: DEXTROSE 50%-WATER 50 ML DISP.SYRIN IV ONE (05:35)
[2020-06-08] MEDS: INSULIN R PO SS2 SQ SCH ×4 (06:22→21:47)
[2020-06-08 07:10] LABS: BASOPHILS % (AUTO) 0.6 % (0.0-5.0); EOSINOPHILS % (AUTO) 0.7 % (0.0-8.0); HEMATOCRIT 28.3 % (36-48); LYMPHOCYTES % (AUTO) 11.8 % (21.0-51.0); MEAN CORPUSCULAR HEMOGLOBIN 29.2 pg (27.0-33.0); MEAN CORPUSCULAR HGB CONC 33.2 g/dL (32.0-36.0); MEAN CORPUSCULAR VOLUME 87.9 fL (79-99); MONOCYTES % (AUTO) 9.8 % (3.0-13.0); PLATELET COUNT (AUTO) 227 K/uL (130-400); RED BLOOD CELL COUNT(AUTO) 3.22 MIL/uL (4.00-5.50); WHITE BLOOD COUNT (AUTO) 8.2 K/uL (4.8-10.8)
[2020-06-08 07:19] LABS: ALBUMIN 2.6 g/dL (3.5-5.0); BILIRUBIN,TOTAL 0.3 mg/dL (0.2-1.0); CREATININE 6.8 mg/dL (0.5-1.5); MAGNESIUM 2.2 mg/dL (1.80-2.40); PHOSPHORUS 6.9 mg/dL (2.5-4.9); POTASSIUM 3.3 mmol/L (3.5-5.1); TOTAL PROTEIN, SERUM 5.6 g/dL (6.0-8.3)
[2020-06-08] MEDS: INSULIN GLARGINE 100 UNITS/ML 10 ML VIAL SQ SCH ×2 (07:30→21:48)
[2020-06-08 08:00] VITALS: BP 181/57
--- NOTE | 2020-06-08 08:00 | NUR ---
0800 DRESSING TO RT FEMORAL SITE CLEAN AND DRY, NO SWELLING, REDNESS OR BRUISING NOTED TO SITE.
--- NOTE | 2020-06-08 09:20 | NUR ---
DR. ZAMBRANO IN TO SEE PT. IN TO SEE PT
[2020-06-08] MEDS: LOSARTAN 100 MG TABLET PO SCH (10:20)
[2020-06-08] MEDS: CETIRIZINE HCL 5 MG TABLET PO SCH (10:21)
[2020-06-08] MEDS: FAMOTIDINE 20MG TAB 20 MG TAB PO SCH (10:21)
[2020-06-08] MEDS: TICAGRELOR 90 MG TABLET PO SCH ×2 (10:22→21:50)
[2020-06-08] MEDS: ATORVASTATIN CALCIUM 20 MG TABLET PO SCH (10:22)
[2020-06-08] MEDS: APIXABAN 2.5 MG TABLET PO SCH ×2 (10:22→21:49)
[2020-06-08] MEDS: METOPROLOL TARTRATE 25 MG TAB PO SCH ×2 (10:22→21:54)
[2020-06-08] MEDS: AMLODIPINE BESYLATE 5 MG TAB PO SCH (10:22)
[2020-06-08] MEDS: CLONIDINE HCL 0.1 MG TABLET PO SCH ×2 (10:25→21:53)
[2020-06-08] MEDS: GABAPENTIN 300 MG CAPSULE PO SCH ×3 (10:31→21:49)
[2020-06-08 12:00] VITALS: BP 179/59
--- NOTE | 2020-06-08 14:00 | NUR ---
ORDER FROM DR. HIGGINS TO DO H-D FOR 2 HRS. TODAY. BACK ON REGULAR SCHEDULE TOMORROW.
[2020-06-08 16:00] VITALS: BP 131/48
[2020-06-08 20:02] VITALS: BP 155/56
[2020-06-08] MEDS: QUETIAPINE FUMARATE 25 MG TAB PO SCH (21:50)
[2020-06-08] MEDS: LATANOPROST 2.5 ML DROPS OP SCH (21:50)
[2020-06-08 23:24] VITALS: BP 150/49
[2020-06-09 04:36] VITALS: BP 135/47
[2020-06-09] MEDS: INSULIN R PO SS2 SQ SCH ×4 (05:55→20:20)
[2020-06-09 06:17] LABS: BASOPHILS % (AUTO) 0.6 % (0.0-5.0); EOSINOPHILS % (AUTO) 1.9 % (0.0-8.0); HEMATOCRIT 31.1 % (36-48); LYMPHOCYTES % (AUTO) 16.9 % (21.0-51.0); MEAN CORPUSCULAR HEMOGLOBIN 29.1 pg (27.0-33.0); MEAN CORPUSCULAR HGB CONC 32.8 g/dL (32.0-36.0); MEAN CORPUSCULAR VOLUME 88.9 fL (79-99); MONOCYTES % (AUTO) 8.7 % (3.0-13.0); NEUTROPHILS % (AUTO) 70.4 % (40.0-77.0); PLATELET COUNT (AUTO) 238 K/uL (130-400); RED CELL DISTRIBUTION WIDTH 14.6 % (11.0-15.5); WHITE BLOOD COUNT (AUTO) 8.9 K/uL (4.8-10.8)
[2020-06-09 06:45] LABS: ALBUMIN 2.7 g/dL (3.5-5.0); BILIRUBIN,TOTAL 0.3 mg/dL (0.2-1.0); CREATININE 6.5 mg/dL (0.5-1.5); MAGNESIUM 2.3 mg/dL (1.80-2.40); PHOSPHORUS 6.5 mg/dL (2.5-4.9); POTASSIUM 3.2 mmol/L (3.5-5.1); TOTAL PROTEIN, SERUM 5.9 g/dL (6.0-8.3)
[2020-06-09 08:00] VITALS: BP 132/49
[2020-06-09] MEDS: INSULIN GLARGINE 100 UNITS/ML 10 ML VIAL SQ SCH (08:11)
[2020-06-09] MEDS: AMLODIPINE BESYLATE 5 MG TAB PO SCH (09:00)
[2020-06-09] MEDS: LOSARTAN 100 MG TABLET PO SCH (09:00)
[2020-06-09] MEDS: METOPROLOL TARTRATE 25 MG TAB PO SCH ×2 (09:00→20:08)
[2020-06-09] MEDS: CLONIDINE HCL 0.1 MG TABLET PO SCH ×2 (09:00→20:07)
[2020-06-09] MEDS: CLOPIDOGREL BISULFATE 75 MG TAB PO SCH (10:56)
[2020-06-09] MEDS: FAMOTIDINE 20MG TAB 20 MG TAB PO SCH (10:56)
[2020-06-09] MEDS: CETIRIZINE HCL 5 MG TABLET PO SCH (10:56)
[2020-06-09] MEDS: ATORVASTATIN CALCIUM 20 MG TABLET PO SCH (10:56)
[2020-06-09] MEDS: APIXABAN 2.5 MG TABLET PO SCH ×2 (10:57→20:07)
[2020-06-09] MEDS: GABAPENTIN 300 MG CAPSULE PO SCH ×3 (10:57→20:08)
[2020-06-09 11:00] VITALS: BP 159/53
[2020-06-09 16:00] VITALS: BP 146/49
[2020-06-09] MEDS ORDERED: INSLAN SQ ×2 (19:18)
[2020-06-09] MEDS ORDERED: CLOP75TA14 PO ×2 (19:18)
[2020-06-09] MEDS ORDERED: APIX2.5T PO ×2 (19:18)
[2020-06-09] MEDS ORDERED: METO25 PO ×2 (19:18)
[2020-06-09] MEDS ORDERED: LOSA100T2 PO ×2 (19:18)
[2020-06-09] MEDS ORDERED: FAMO20TA8 PO ×2 (19:18)
[2020-06-09] MEDS ORDERED: AMLO5TAB4 PO ×2 (19:18)
[2020-06-09] MEDS ORDERED: ATOR20TA65 PO ×2 (19:18)
[2020-06-09 19:49] VITALS: BP 162/64
[2020-06-09] MEDS: LATANOPROST 2.5 ML DROPS OP SCH (20:07)
[2020-06-09] MEDS: QUETIAPINE FUMARATE 25 MG TAB PO SCH (20:08)
[2020-06-09 23:15] VITALS: BP 126/40
[2020-06-10 03:15] VITALS: BP 128/52
[2020-06-10] MEDS: INSULIN R PO SS2 SQ SCH (05:36)
[2020-06-10 07:10] LABS: BASOPHILS % (AUTO) 0.7 % (0.0-5.0); EOSINOPHILS % (AUTO) 2.2 % (0.0-8.0); LYMPHOCYTES % (AUTO) 12.5 % (21.0-51.0); MEAN CORPUSCULAR HEMOGLOBIN 29.4 pg (27.0-33.0); MEAN CORPUSCULAR HGB CONC 32.6 g/dL (32.0-36.0); MEAN CORPUSCULAR VOLUME 90.2 fL (79-99); MONOCYTES % (AUTO) 7.7 % (3.0-13.0); NEUTROPHILS % (AUTO) 75.4 % (40.0-77.0); PLATELET COUNT (AUTO) 211 K/uL (130-400); RED BLOOD CELL COUNT(AUTO) 3.88 MIL/uL (4.00-5.50); RED CELL DISTRIBUTION WIDTH 14.8 % (11.0-15.5); WHITE BLOOD COUNT (AUTO) 8.6 K/uL (4.8-10.8)
[2020-06-10 07:31] LABS: CREATININE 4.7 mg/dL (0.5-1.5)
--- NOTE | 2020-06-10 07:35 | NUR ---
ASSESSMENT ENCOUNTERED PT A&OX3, CALM COOPERATIVE AND DOES NOT APPEAR TO BE IN ANY DISTRESS NOR ANY NEURO DEFICITS PRESENT. PT DENIES PAIN, SOB, NAUSEA. RT GROIN SOFT NONTENDER WITH NO OOZING OR HEMATOMA PRESENT. DP/PT PULSES PALPABLE, CALL LIGHT WITHIN REACH.
[2020-06-10 08:03] VITALS: BP 134/58
[2020-06-10] MEDS: CETIRIZINE HCL 5 MG TABLET PO SCH (09:00)
[2020-06-10] MEDS ORDERED: INSULIN GLARGINE 100 UNITS/ML 10 ML VIAL SQ SCH (09:00)
[2020-06-10] MEDS: METOPROLOL TARTRATE 25 MG TAB PO SCH (09:19)
[2020-06-10] MEDS: FAMOTIDINE 20MG TAB 20 MG TAB PO SCH (09:20)
[2020-06-10] MEDS: APIXABAN 2.5 MG TABLET PO SCH (09:20)
[2020-06-10] MEDS: ATORVASTATIN CALCIUM 20 MG TABLET PO SCH (09:20)
[2020-06-10] MEDS: CLOPIDOGREL BISULFATE 75 MG TAB PO SCH (09:20)
[2020-06-10] MEDS: AMLODIPINE BESYLATE 5 MG TAB PO SCH (09:21)
[2020-06-10] MEDS: GABAPENTIN 300 MG CAPSULE PO SCH (09:21)
[2020-06-10] MEDS: LOSARTAN 100 MG TABLET PO SCH (09:21)
--- NOTE | 2020-06-10 11:00 | NUR ---
CM Note: [facility] pending approval for O2 CM spoke to pt discussed need for home O2 prior to DC, pt agreeable. Telephone consent obtained [facility] for [facility]. Faxed order and clinicals to [facility], confirmation received. Pt pending approval and delivery for home O2 portable and stationary. Primary nurse aware. CM to cont to follow up.
[2020-06-10 11:15] VITALS: BP 142/52
--- NOTE | 2020-06-10 12:30 | NUR ---
CM Note: Hospital lend oxygen portable and concentrator CM verified. Portable oxygen #[id number] and stationary oxygen #[id number] dropped off in pt's room. RT to educate pt on use of O2. Pt instructed to return portable oxygen to ED once able to get situated w/stationary O2 at home. Pt also instructed to return stationary oxygen to ED once own O2 form [facility] delivered at patient's house. Pt verbalized understanding. Verbal consent given. Primary nurse Jw jordan. Pt safe to DC via private car. CM to cont to follow up.
--- NOTE | 2020-06-10 12:44 | NUR ---
CM Note: [facility] pending to delivery O2 @ home CM received confirmation from [facility]. Currently expediting approval and delivery of portable and stationary O2 at home. CM to cont to follow up.
--- NOTE | 2020-06-10 15:00 | NUR ---
DISCHARGE INSTRUCTIONS GIVEN, PIV REMOVED AND INTACT, DISCHARGED HOME TO FAMILY VEHICLE VIA WHEELCHAIR
== END 2020-06-10 15:52 | disposition home or self-care (01) | DRG 280 ==
LOC: EDH 15:46 → EDHIP 18:54 → DAHIP 20:07 → 4CH 06-07 16:17
PROVIDERS: ADMIT Internal Medicine Critical Care Medicine; ATTEND Internal Medicine Critical Care Medicine
PROC: 5A1D70Z Performance of Urinary Filtration, Intermittent, Less than 6 Hours Per Day (ICD-10-PCS; principal; 2020-06-06)
PROC: 4A023N7 Measurement of Cardiac Sampling and Pressure, Left Heart, Percutaneous Approach (ICD-10-PCS; 2020-06-07)
PROC: B2111ZZ Fluoroscopy of Multiple Coronary Arteries using Low Osmolar Contrast (ICD-10-PCS; 2020-06-07)
PROC: B41F1ZZ Fluoroscopy of Right Lower Extremity Arteries using Low Osmolar Contrast (ICD-10-PCS; 2020-06-07)
PROC: 5A1D70Z Performance of Urinary Filtration, Intermittent, Less than 6 Hours Per Day (ICD-10-PCS; 2020-06-08)
PROC: 5A1D70Z Performance of Urinary Filtration, Intermittent, Less than 6 Hours Per Day (ICD-10-PCS; 2020-06-09)
DX: I21.4 Non-ST elevation (NSTEMI) myocardial infarction (principal); N18.6 End stage renal disease; I50.33 Acute on chronic diastolic (congestive) heart failure; I13.2 Hypertensive heart and chronic kidney disease with heart failure and with stage 5 chronic kidney disease, or end stage renal disease; I24.9 Acute ischemic heart disease, unspecified; I48.0 Paroxysmal atrial fibrillation; E78.5 Hyperlipidemia, unspecified; E11.22 Type 2 diabetes mellitus with diabetic chronic kidney disease; I34.0 Nonrheumatic mitral (valve) insufficiency; G47.33 Obstructive sleep apnea (adult) (pediatric); E87.70 Fluid overload, unspecified; I25.10 Atherosclerotic heart disease of native coronary artery without angina pectoris; D63.8 Anemia in other chronic diseases classified elsewhere; H40.9 Unspecified glaucoma; Z20.828 Contact with and (suspected) exposure to other viral communicable diseases; Z99.2 Dependence on renal dialysis; Z88.6 Allergy status to analgesic agent; Z90.710 Acquired absence of both cervix and uterus; Z85.72 Personal history of non-Hodgkin lymphomas; Z92.21 Personal history of antineoplastic chemotherapy; I25.2 Old myocardial infarction; Z79.01 Long term (current) use of anticoagulants; Z79.4 Long term (current) use of insulin; Z79.899 Other long term (current) drug therapy; Z83.3 Family history of diabetes mellitus; Z82.49 Family history of ischemic heart disease and other diseases of the circulatory system
CPT/HCPCS: 36415; 71045; 80048; 80053; 82550; 82948; 83036; 83735; 83874; 83880; 84100; 84443; 84484; 84550; 85025; 85027; 85347; 85610; 85730; 87426; 90935; 93005; 93306; 93356; 93454; 94760; 99156; 99157; C1894; G0378; J0360; J0583; J1200; J1644; J1815; J2250; J2930; J3010; J3475; J3490; J7070; Q9967; U0003

== ENCOUNTER 2020-09-15 00:35 | Observation (INO) | payer OTHER, MEDICARE ==
[~2020-09-15] VITALS: Ht 157.5 cm; Wt 63.0 kg
[~2020-09-15 00:35] MED LIST changes: -AMLO10TA7 PO; +AMLO5TAB4 PO; +APIX2.5T PO; +ATOR20TA65 PO; +CLOP75TA14 PO; +HUMALOG SQ; -INSU100I21 PO; -INSU100V SQ; +INSU100V12 SQ; +LOSA100T2 PO; -METO25TA6 PO; -METO50TA18 PO
[2020-09-15] MEDS ORDERED: FUROSEMIDE 10 MG/ML 4ML VIAL ONE (00:53)
[2020-09-15] MEDS ORDERED: MORPHINE SULFATE 2 MG/ML 1ML SYG ONE (00:53)
[2020-09-15] MEDS ORDERED: NITROGLYCERIN 1GM/1 INCH PACKET TD ONE (00:53)
[2020-09-15 00:58] LABS: ABG BASE EXCESS -8.1 mmol/L (-2.0-3.0); ABG OXYGEN SATURATION 99.3 % (95.0-99.0); ABG PCO2 39 mmHg (32-45)
[2020-09-15 01:18] LABS: INR 0.93 (0.85-1.15); PARTIAL THROMBOPLASTIN TIME 27.6 SEC (26.3-35.5); PROTHROMBIN TIME 10.1 SEC (9.6-11.6)
[2020-09-15 01:20] LABS: ALBUMIN 3.3 g/dL (3.5-5.0); BILIRUBIN,TOTAL 0.5 mg/dL (0.2-1.0); POTASSIUM 5.8 mmol/L (3.5-5.1); TOTAL PROTEIN, SERUM 7.6 g/dL (6.0-8.3)
[2020-09-15 01:23] LABS: BASOPHILS % (AUTO) 0.6 % (0.0-5.0); EOSINOPHILS % (AUTO) 1.4 % (0.0-8.0); HEMATOCRIT 43.9 % (36-48); LYMPHOCYTES % (AUTO) 13.6 % (21.0-51.0); MEAN CORPUSCULAR HEMOGLOBIN 27.9 pg (27.0-33.0); MEAN CORPUSCULAR HGB CONC 32.1 g/dL (32.0-36.0); MEAN CORPUSCULAR VOLUME 86.8 fL (79-99); MONOCYTES % (AUTO) 5.1 % (3.0-13.0); NEUTROPHILS % (AUTO) 78.9 % (40.0-77.0); PLATELET COUNT (AUTO) 226 K/uL (130-400); RED BLOOD CELL COUNT(AUTO) 5.06 MIL/uL (4.00-5.50); RED CELL DISTRIBUTION WIDTH 14.5 % (11.0-15.5); WHITE BLOOD COUNT (AUTO) 11.2 K/uL (4.8-10.8)
[2020-09-15] MEDS ORDERED: METOPROLOL TARTRATE 25 MG TAB ONE (02:04)
[2020-09-15] MEDS ORDERED: SODIUM POLYSTYRENE SULFONATE 15 GM/60 ML ML ONE ×2 (02:41→05:58)
[2020-09-15] MEDS ORDERED: CLONIDINE HCL 0.1 MG TABLET ONE ×4 (03:24→21:57)
[2020-09-15 05:26] LABS: BASOPHILS % (AUTO) 0.6 % (0.0-5.0); EOSINOPHILS % (AUTO) 0.7 % (0.0-8.0); HEMATOCRIT 38.7 % (36-48); LYMPHOCYTES % (AUTO) 10.2 % (21.0-51.0); MEAN CORPUSCULAR HGB CONC 32.3 g/dL (32.0-36.0); MEAN CORPUSCULAR VOLUME 86.8 fL (79-99); MONOCYTES % (AUTO) 6.1 % (3.0-13.0); NEUTROPHILS % (AUTO) 81.9 % (40.0-77.0); PLATELET COUNT (AUTO) 200 K/uL (130-400); RED BLOOD CELL COUNT(AUTO) 4.46 MIL/uL (4.00-5.50); RED CELL DISTRIBUTION WIDTH 14.3 % (11.0-15.5); WHITE BLOOD COUNT (AUTO) 10.7 K/uL (4.8-10.8)
[2020-09-15 05:41] LABS: CREATININE 10.9 mg/dL (0.5-1.5); POTASSIUM 6.2 mmol/L (3.5-5.1)
[2020-09-15] MEDS ORDERED: SODIUM POLYSTYRENE SULFONATE 15 GM/60 ML ML PO NR (08:30)
[2020-09-15] MEDS ORDERED: METOPROLOL SUCCINATE 50 MG TAB.SR.24H PO ONE (08:42)
[2020-09-15] MEDS ORDERED: HEPARIN SODIUM 5000UNIT/ML 1ML VIAL ONE ×2 (08:43→21:58)
[2020-09-15] MEDS ORDERED: NICARDIPINE HCL 25 MG in SODIUM CHLORIDE 0.9% 240 ML IV SCH (08:45)
[2020-09-15] MEDS ORDERED: ONDANSETRON HCL 4 MG/2 ML VIAL IVP PRN (08:45)
[2020-09-15] MEDS ORDERED: MORPHINE SULFATE 2 MG/ML 1ML SYG IVP PRN ×2 (08:45)
[2020-09-15] MEDS ORDERED: CLONIDINE HCL 0.1 MG TABLET PO PRN (08:45)
[2020-09-15] MEDS: METOPROLOL TARTRATE 25 MG TAB PO SCH ×3 (09:00→21:00)
[2020-09-15] MEDS: HEPARIN SODIUM 5000UNIT/ML 1ML VIAL SQ SCH ×2 (09:00→21:00)
[2020-09-15] MEDS: INSULIN R PO SS1 SQ SCH ×3 (11:30→21:00)
--- NOTE | 2020-09-15 16:53 | NUR ---
DC PLAN PATIENT IN ER UNABLE TO VISIT WITH PATIENT. SPOKE TO DAUGHTER. PATIENT LIVES WITH HER. SEMI INDEPENDENT ABLE TO PERFORM SOME ADL'S. SAID EVER SINCE BIOPSY ON Jul WHICH HAS CAUSED PATIENT TO BE IN PAIN. NOW USES A WALKER AND WHEEL CHAIR. NEW PROVIDER FOR 21 HRS JUST STARTED. PATIENT ALSO HAS 02. PLAN TO GO HOME ON DC. DAUGHTER WORKS FROM HOME. Addendum: 09/15/20 at 1658 by CARLOS ENRIQUE SANCHEZ RN CM Amended: Links added.
[2020-09-15] MEDS: GABAPENTIN 300 MG CAPSULE PO SCH (21:00)
[2020-09-15] MEDS ORDERED: ATORVASTATIN CALCIUM 20 MG TABLET PO SCH (21:00)
[2020-09-15] MEDS: INSULIN GLARGINE 100 UNITS/ML 10 ML VIAL SQ SCH (21:00)
[2020-09-15] MEDS ORDERED: LATANOPROST 2.5 ML DROPS OP SCH (21:00)
[2020-09-15] MEDS: APIXABAN 2.5 MG TABLET PO SCH (21:00)
[2020-09-15] MEDS: CLONIDINE HCL 0.1 MG TABLET PO SCH (21:00)
[2020-09-15] MEDS ORDERED: APIXABAN 2.5 MG TABLET PO ONE (21:58)
[2020-09-15] MEDS ORDERED: ATORVASTATIN CALCIUM 40 MG TABLET ONE (21:58)
[2020-09-16 00:10] VITALS: BP 173/65
[2020-09-16 04:00] VITALS: BP 152/53
[2020-09-16] MEDS: INSULIN R PO SS1 SQ SCH ×2 (06:05→11:30)
[2020-09-16 06:06] LABS: EOSINOPHILS % (AUTO) 3.3 % (0.0-8.0); HEMATOCRIT 39.4 % (36-48); LYMPHOCYTES % (AUTO) 18.5 % (21.0-51.0); MEAN CORPUSCULAR HEMOGLOBIN 27.8 pg (27.0-33.0); MEAN CORPUSCULAR VOLUME 86.8 fL (79-99); MONOCYTES % (AUTO) 8.6 % (3.0-13.0); NEUTROPHILS % (AUTO) 68.2 % (40.0-77.0); PLATELET COUNT (AUTO) 201 K/uL (130-400); RED BLOOD CELL COUNT(AUTO) 4.54 MIL/uL (4.00-5.50); RED CELL DISTRIBUTION WIDTH 14.2 % (11.0-15.5); WHITE BLOOD COUNT (AUTO) 6.9 K/uL (4.8-10.8)
[2020-09-16 06:21] LABS: PHOSPHORUS 8.8 mg/dL (2.5-4.9); POTASSIUM 4.2 mmol/L (3.5-5.1)
[2020-09-16 06:24] LABS: CREATININE 8.2 mg/dL (0.5-1.5)
[2020-09-16] MEDS: METOPROLOL TARTRATE 25 MG TAB PO SCH ×2 (07:42→09:38)
[2020-09-16 08:01] VITALS: BP 142/50
[2020-09-16] MEDS: INSULIN GLARGINE 100 UNITS/ML 10 ML VIAL SQ SCH (08:17)
[2020-09-16] MEDS: HEPARIN SODIUM 5000UNIT/ML 1ML VIAL SQ SCH (09:00)
[2020-09-16] MEDS ORDERED: AMLODIPINE BESYLATE 5 MG TAB PO SCH ×2 (09:00→10:00)
[2020-09-16] MEDS ORDERED: FAMOTIDINE 20MG TAB 20 MG TAB PO SCH (09:00)
[2020-09-16] MEDS ORDERED: LOSARTAN 100 MG TABLET PO SCH (09:00)
[2020-09-16] MEDS: CETIRIZINE HCL 5 MG TABLET PO SCH ×2 (09:00→09:36)
[2020-09-16] MEDS ORDERED: CLOPIDOGREL BISULFATE 75 MG TAB PO SCH (09:00)
[2020-09-16 09:14] LABS: HEPATITIS A ANTIBODY IGM Negative (Negative); HEPATITIS B CORE IGM Negative (Negative); HEPATITIS Bs ANTIGEN SCREEN P Negative (Negative)
[2020-09-16] MEDS: CLONIDINE HCL 0.1 MG TABLET PO SCH (09:37)
[2020-09-16] MEDS: APIXABAN 2.5 MG TABLET PO SCH (09:37)
[2020-09-16] MEDS: GABAPENTIN 300 MG CAPSULE PO SCH (09:38)
[2020-09-16 11:28] VITALS: BP 142/48
[2020-09-16] MEDS ORDERED: CLON1PAT14 TD (13:45)
--- NOTE | 2020-09-16 16:01 | NUR ---
[id number] patient's daughter signed AGUILAR Letter, I faxed AGUILAR Letter to [phone] and placed in chart under consent tab
--- NOTE | 2020-09-16 16:20 | NUR ---
DISCHARGE INSTRUCTION PATIENT AND DAUGHTER GIVEN DISCHARGE INSTRUCTIONS AND VERBALIZED UNDERSTANDING, INSTRUCTED ON FOLLOW-UP APPOINTMENTS AND NEW MEDICATIONS CLONIDINE PATCH PRN FOR SBP OVER 170.AND REVIEWED HOME MEDICATIONS TO CONTINUE . PATIENT HAS APPOINTMENT ALREADY SCHEDULED FOR NEXT WEEK WITH PRIMARY PHYSICIAN. PATIENT INSTRUCTED ON FLUID 1000 CC DAY AND SALT RESTRICTIONS, NO QUESTIONS OR CONCERNS AT THIS TIME. PATIENT TAKEN BY WHEELCHAIR TO LOBBY TO MET DAUGHTER
== END 2020-09-16 16:20 | disposition home or self-care (01) ==
LOC: EDH 00:35 → INTOOBSV 01:20 → EDHIP 01:20 → OBSVTOIN 01:20 → 4CH 23:47
PROVIDERS: ADMIT Internal Medicine; ATTEND Internal Medicine
DX: I12.0 Hypertensive chronic kidney disease with stage 5 chronic kidney disease or end stage renal disease (principal); E11.22 Type 2 diabetes mellitus with diabetic chronic kidney disease; N18.6 End stage renal disease; J81.1 Chronic pulmonary edema; D63.8 Anemia in other chronic diseases classified elsewhere; E87.70 Fluid overload, unspecified; I16.0 Hypertensive urgency; E87.5 Hyperkalemia; E78.5 Hyperlipidemia, unspecified; I25.10 Atherosclerotic heart disease of native coronary artery without angina pectoris; E87.2 Acidosis; Z85.72 Personal history of non-Hodgkin lymphomas; Z90.710 Acquired absence of both cervix and uterus; Z91.19 Patient's noncompliance with other medical treatment and regimen; Z99.2 Dependence on renal dialysis; Z79.899 Other long term (current) drug therapy; Z88.6 Allergy status to analgesic agent
CPT/HCPCS: 36415 ×2; 36600; 71045 ×2; 80048; 80053; 80074; 82435; 82550; 82803; 82947; 82948 ×3; 83605; 84100; 84132 ×2; 84295; 84484 ×3; 85018; 85025 ×3; 85610; 85730; 93005; 94660; 96372; 99291; G0378 ×36; J1644 ×2; J1940; 90935

== ENCOUNTER 2020-10-20 22:18 | Emergency (ER) | payer OTHER, MEDICARE ==
[~2020-10-20 22:18] MED LIST changes: +CLON1PAT14 TD
[2020-10-20] MEDS ORDERED: FUROSEMIDE 10 MG/ML 4ML VIAL ONE (23:05)
[2020-10-20] MEDS ORDERED: ALBUTEROL INHALER 90MCG/INH IH ONE (23:05)
[2020-10-20] MEDS ORDERED: LABETALOL 20 MG/4 ML DISP.SYRIN IV ONE (23:06)
[2020-10-20 23:21] LABS: BASOPHILS % (AUTO) 0.5 % (0.0-5.0); EOSINOPHILS % (AUTO) 0.9 % (0.0-8.0); HEMATOCRIT 30.2 % (36-48); LYMPHOCYTES % (AUTO) 7.8 % (21.0-51.0); MEAN CORPUSCULAR HEMOGLOBIN 27.4 pg (27.0-33.0); MEAN CORPUSCULAR HGB CONC 32.8 g/dL (32.0-36.0); MEAN CORPUSCULAR VOLUME 83.7 fL (79-99); MONOCYTES % (AUTO) 6.2 % (3.0-13.0); NEUTROPHILS % (AUTO) 83.5 % (40.0-77.0); PLATELET COUNT (AUTO) 170 K/uL (130-400); RED BLOOD CELL COUNT(AUTO) 3.61 MIL/uL (4.00-5.50); RED CELL DISTRIBUTION WIDTH 14.4 % (11.0-15.5); WHITE BLOOD COUNT (AUTO) 7.9 K/uL (4.8-10.8)
[2020-10-20] MEDS ORDERED: ACETYLCYSTEINE 600 MG CAPSULE ONE (23:28)
[2020-10-20] MEDS ORDERED: CLONIDINE HCL 0.2 MG TABLET PO ONE (23:34)
[2020-10-20 23:36] LABS: PROTHROMBIN TIME 10.7 SEC (9.6-11.6)
[2020-10-20 23:39] LABS: ALBUMIN 3.3 g/dL (3.5-5.0); B-TYPE NATRIURETIC PEPTIDE 1650 pg/mL (0-100); BILIRUBIN,DIRECT 0.2 mg/dL (0.0-0.3); BILIRUBIN,TOTAL 0.5 mg/dL (0.2-1.0); CREATININE 5.9 mg/dL (0.5-1.5); POTASSIUM 4.4 mmol/L (3.5-5.1)
[2020-10-20 23:51] LABS: PARTIAL THROMBOPLASTIN TIME 25.6 SEC (26.3-35.5)
[2020-10-21] MEDS ORDERED: INSULIN HUMULIN R 100 UNIT/ML 3ML ONE (00:11)
[2020-10-21] MEDS ORDERED: LABETALOL 20 MG/4 ML DISP.SYRIN IV ONE (00:19)
[2020-10-27] MEDS ORDERED: ALBUHFA IH (17:34)
== END 2020-10-21 01:07 | disposition home or self-care (01) ==
LOC: EDH 22:18
DX: E11.65 Type 2 diabetes mellitus with hyperglycemia (principal); I12.0 Hypertensive chronic kidney disease with stage 5 chronic kidney disease or end stage renal disease; E11.22 Type 2 diabetes mellitus with diabetic chronic kidney disease; N18.6 End stage renal disease; Z88.6 Allergy status to analgesic agent; Z90.49 Acquired absence of other specified parts of digestive tract; Z99.2 Dependence on renal dialysis
CPT/HCPCS: 36415; 71045; 80053; 82948; 83880; 84484; 85025; 85610; 85730; 87804 ×2; 93005; 96374; 96375 ×2; 96376; 99285; J1815; J1940; 80076

== ENCOUNTER 2020-10-27 00:18 | Observation (INO) | payer OTHER, MEDICARE ==
[~2020-10-27] VITALS: Ht 157.5 cm; Wt 63.6 kg
[2020-10-27] MEDS ORDERED: ALBUTEROL SULFATE 0.083% 2.5 MG/3 ML INH IH ONE (00:51)
[2020-10-27] MEDS ORDERED: FUROSEMIDE 10 MG/ML 4ML VIAL ONE (00:56)
[2020-10-27] MEDS ORDERED: CLONIDINE HCL 0.1 MG TABLET ONE (00:56)
[2020-10-27 01:05] LABS: ABG HCO3 21.5 mmol/L (21.0-28.0); ABG OXYGEN SATURATION 93.6 % (95.0-99.0); ABG PCO2 41 mmHg (32-45)
[2020-10-27 01:27] LABS: BASOPHILS % (AUTO) 0.5 % (0.0-5.0); HEMATOCRIT 29.8 % (36-48); LYMPHOCYTES % (AUTO) 27.6 % (21.0-51.0); MEAN CORPUSCULAR HEMOGLOBIN 27.6 pg (27.0-33.0); MEAN CORPUSCULAR HGB CONC 33.6 g/dL (32.0-36.0); MEAN CORPUSCULAR VOLUME 82.3 fL (79-99); MONOCYTES % (AUTO) 5.5 % (3.0-13.0); NEUTROPHILS % (AUTO) 62.7 % (40.0-77.0); PLATELET COUNT (AUTO) 221 K/uL (130-400); RED BLOOD CELL COUNT(AUTO) 3.62 MIL/uL (4.00-5.50); RED CELL DISTRIBUTION WIDTH 14.6 % (11.0-15.5); WHITE BLOOD COUNT (AUTO) 8.2 K/uL (4.8-10.8)
[2020-10-27 01:32] LABS: INR 0.94 (0.85-1.15); PROTHROMBIN TIME 10.1 SEC (9.6-11.6)
[2020-10-27 01:34] LABS: PARTIAL THROMBOPLASTIN TIME 25.1 SEC (26.3-35.5)
[2020-10-27 01:36] LABS: ALBUMIN 3.3 g/dL (3.5-5.0); BILIRUBIN,TOTAL 0.3 mg/dL (0.2-1.0); POTASSIUM 4.6 mmol/L (3.5-5.1); TOTAL PROTEIN, SERUM 7.4 g/dL (6.0-8.3)
[2020-10-27 01:38] LABS: CREATININE 9.4 mg/dL (0.5-1.5)
[2020-10-27 01:46] LABS: B-TYPE NATRIURETIC PEPTIDE 1540 pg/mL (0-100)
[2020-10-27] MEDS ORDERED: INSULIN HUMULIN R 100 UNIT/ML 3ML ONE (04:38)
[2020-10-27 05:10] VITALS: BP 183/61
[2020-10-27] MEDS ORDERED: IPRATROPIUM/ALBUTEROL SULFATE 3 ML SOLUTION IH SCH (06:00)
[2020-10-27] MEDS: INSULIN HUMULIN R 100 UNIT/ML 3ML SQ SCH ×3 (06:15→16:30)
[2020-10-27 09:02] VITALS: BP 163/53
[2020-10-27] MEDS: ALBUTEROL INHALER 90MCG/INH IH SCH ×2 (10:00→15:05)
[2020-10-27] MEDS ORDERED: ALBUHFA IH ×2 (17:34)
[2020-10-27 18:42] VITALS: BP 206/45
== END 2020-10-27 18:45 | disposition home or self-care (01) ==
LOC: EDH 00:18 → EDHIP 03:10 → 3CH 03:38
PROVIDERS: ADMIT Internal Medicine Critical Care Medicine; ATTEND Internal Medicine Critical Care Medicine
DX: I13.2 Hypertensive heart and chronic kidney disease with heart failure and with stage 5 chronic kidney disease, or end stage renal disease (principal); E11.22 Type 2 diabetes mellitus with diabetic chronic kidney disease; N18.6 End stage renal disease; I50.32 Chronic diastolic (congestive) heart failure; Z20.822 Contact with and (suspected) exposure to COVID-19; J20.9 Acute bronchitis, unspecified; J96.01 Acute respiratory failure with hypoxia; I48.0 Paroxysmal atrial fibrillation; E78.5 Hyperlipidemia, unspecified; D63.8 Anemia in other chronic diseases classified elsewhere; I34.0 Nonrheumatic mitral (valve) insufficiency; I25.10 Atherosclerotic heart disease of native coronary artery without angina pectoris; Z85.72 Personal history of non-Hodgkin lymphomas; Z90.710 Acquired absence of both cervix and uterus; Z99.2 Dependence on renal dialysis; Z79.899 Other long term (current) drug therapy; Z88.6 Allergy status to analgesic agent
CPT/HCPCS: 36415; 36600; 71045; 80053; 82550; 82803; 82948 ×3; 83605; 83880; 84484; 85025; 85610; 85730; 87040 ×2; 87426; 93005; 94640; 96372; 99291; G0378 ×13; J1815 ×2; J1940; U0003; 90935

== ENCOUNTER 2020-11-23 20:48 | Observation (INO) | payer OTHER, MEDICARE ==
[~2020-11-23] VITALS: Ht 157.5 cm; Wt 65.8 kg
[~2020-11-23 20:48] MED LIST changes: +ALBUHFA IH
[2020-11-23] MEDS ORDERED: ALBUTEROL INHALER 90MCG/INH IH ONE (21:04)
[2020-11-23] MEDS ORDERED: LORAZEPAM 2 MG/ML 1 ML VIAL ONE (21:05)
[2020-11-23 21:06] LABS: ABG OXYGEN SATURATION 97.9 % (95.0-99.0); ABG PCO2 45 mmHg (32-45)
[2020-11-23] MEDS ORDERED: HYDRALAZINE HCL 20 MG/ML VIAL ONE (21:11)
[2020-11-23 21:17] LABS: BASOPHILS % (AUTO) 0.8 % (0.0-5.0); EOSINOPHILS % (AUTO) 1.9 % (0.0-8.0); HEMATOCRIT 32.2 % (36-48); LYMPHOCYTES % (AUTO) 37.7 % (21.0-51.0); MEAN CORPUSCULAR HEMOGLOBIN 29.1 pg (27.0-33.0); MEAN CORPUSCULAR HGB CONC 31.7 g/dL (32.0-36.0); NEUTROPHILS % (AUTO) 52.8 % (40.0-77.0); PLATELET COUNT (AUTO) 312 K/uL (130-400); RED CELL DISTRIBUTION WIDTH 16.1 % (11.0-15.5); WHITE BLOOD COUNT (AUTO) 15.8 K/uL (4.8-10.8)
[2020-11-23 21:40] LABS: RAPID GROUP A STREP NEGATIVE (NEGATIVE)
[2020-11-23 21:41] LABS: ALBUMIN 3.5 g/dL (3.5-5.0); BILIRUBIN,TOTAL 0.5 mg/dL (0.2-1.0); POTASSIUM 4.1 mmol/L (3.5-5.1); TOTAL PROTEIN, SERUM 7.4 g/dL (6.0-8.3)
[2020-11-23 21:58] LABS: CREATININE 8.9 mg/dL (0.5-1.5)
[2020-11-23 22:05] LABS: B-TYPE NATRIURETIC PEPTIDE 2700 pg/mL (0-100)
[2020-11-23 22:11] LABS: PROTHROMBIN TIME 10.9 SEC (9.6-11.6)
[2020-11-23 22:12] LABS: PARTIAL THROMBOPLASTIN TIME 24.7 SEC (26.3-35.5)
[2020-11-23] MEDS ORDERED: NITROGLYCERIN 50 MG/D5% WATER 1 BOT ONE (22:18)
[2020-11-23] MEDS ORDERED: FUROSEMIDE 10 MG/ML 4ML VIAL ONE (22:29)
[2020-11-23] MEDS ORDERED: DEXAMETHASONE SOD PHOSPHATE 10MG/ML 1ML VIAL ONE (22:29)
[2020-11-23] MEDS ORDERED: CEFTRIAXONE SODIUM 1 GM ONE (22:30)
[2020-11-23] MEDS ORDERED: MAG HYDROX/AL HYDROX/SIMETH ES 30 ML SUSP UDCUP PO PRN (22:30)
[2020-11-23] MEDS ORDERED: NITROGLYCERIN 0.4 MG SL TAB SL PRN (22:30)
[2020-11-23] MEDS ORDERED: GUAIFENESIN-DM 200/20 MG 10 ML PO PRN (22:30)
[2020-11-23] MEDS: NITROGLYCERIN 1GM/1 INCH PACKET TD SCH (22:30)
[2020-11-23] MEDS: DOXYCYCLINE 100MG+NS 250ML 250 ML IV SCH (22:30)
[2020-11-23] MEDS ORDERED: ACETAMINOPHEN 325 MG TAB PO PRN (22:30)
[2020-11-23] MEDS ORDERED: HYDRALAZINE HCL 20 MG/ML VIAL IV PRN (22:30)
[2020-11-23] MEDS ORDERED: AZITHROMYCIN 500MG+NS 250ML 250 ML IV ONE (22:30)
[2020-11-23] MEDS ORDERED: ACETAMINOPHEN-CODEINE 300/30MG TAB PO PRN (22:30)
[2020-11-23] MEDS ORDERED: LACTULOSE 20 GM/30 ML UDCUP PO PRN (22:30)
[2020-11-23 22:58] LABS: CREATINE KINASE, TOTAL 58 U/L (21-232); MYOGLOBIN 140 ng/mL (10-92); TROPONIN I < 0.04 ng/mL (0.00-0.06)
[2020-11-24] MEDS: SODIUM BICARB 8.4% 50ML SYRINGE IVP SCH (00:30)
[2020-11-24 00:49] LABS: APPEARANCE,URINE Clear (CLEAR); BILIRUBIN,URINE Negative (NEGATIVE); COLOR,URINE Yellow (YELLOW); GLUCOSE, URINE (UA) >=1000 mg/dL (NEGATIVE); KETONES,URINE Negative (NEGATIVE); LEUKOCYTE ESTERASE ,URINE Negative (NEGATIVE); NITRATE,URINE Negative (NEGATIVE); OCCULT BLOOD,URINE Trace (NEGATIVE); PROTEIN,URINE >=1000 mg/dL (NEGATIVE); UROBILINOGEN,URINE 0.2 mg/dL (0.2-1.0)
[2020-11-24 01:01] LABS: BACTERIA,URINE Few /HPF (None Seen); RBC,URINE 0-1 /HPF (0-1); WBC,URINE 0-1 /HPF (0-1)
[2020-11-24 01:02] LABS: SQUAMOUS EPITHELIAL CELL,UR 0-2 /HPF (0-2)
[2020-11-24] MEDS ORDERED: INSULIN HUMULIN R 100 UNIT/ML 3ML ONE ×4 (01:02→18:15)
[2020-11-24 01:05] LABS: ABG BASE EXCESS -7.9 mmol/L (-2.0-3.0); ABG HCO3 18.2 mmol/L (21.0-28.0); ABG PCO2 39 mmHg (32-45)
[2020-11-24] MEDS ORDERED: MORPHINE SULFATE 2 MG/ML 1ML SYG ONE (01:09)
[2020-11-24] MEDS ORDERED: DOXYCYCLINE 100MG+NS 250ML 250 ML IV ONE ×3 (02:22→20:53)
[2020-11-24] MEDS ORDERED: SODIUM BICARB 50MEQ 50ML VIAL 50 ML ONE (02:22)
[2020-11-24 03:04] LABS: BASOPHILS % (AUTO) 0.4 % (0.0-5.0); HEMATOCRIT 28.1 % (36-48); MEAN CORPUSCULAR HEMOGLOBIN 28.7 pg (27.0-33.0); MEAN CORPUSCULAR HGB CONC 31.7 g/dL (32.0-36.0); MEAN CORPUSCULAR VOLUME 90.6 fL (79-99); MONOCYTES % (AUTO) 1.9 % (3.0-13.0); NEUTROPHILS % (AUTO) 93.8 % (40.0-77.0); PLATELET COUNT (AUTO) 170 K/uL (130-400); WHITE BLOOD COUNT (AUTO) 6.7 K/uL (4.8-10.8)
[2020-11-24 03:21] LABS: POTASSIUM 4.5 mmol/L (3.5-5.1)
[2020-11-24] MEDS ORDERED: GLUCAGON 1MG KIT 1 MG ML IM PRN (04:00)
[2020-11-24] MEDS ORDERED: DEXTROSE 50%-WATER 50 ML DISP.SYRIN IV PRN (04:00)
[2020-11-24 04:58] LABS: TROPONIN I 0.17 ng/mL (0.00-0.06)
[2020-11-24] MEDS: INSULIN R NPO SS2 SQ SCH ×3 (06:00→18:00)
[2020-11-24] MEDS: NITROGLYCERIN 1GM/1 INCH PACKET TD SCH ×3 (06:30→22:30)
[2020-11-24] MEDS ORDERED: ENOXAPARIN SODIUM 30 MG/0.3 ML SQ ONE (08:10)
[2020-11-24] MEDS: ENOXAPARIN SODIUM 30 MG/0.3 ML SQ SCH (09:00)
[2020-11-24] MEDS: DOXYCYCLINE 100MG+NS 250ML 250 ML IV SCH ×2 (10:30→22:30)
[2020-11-24 14:44] LABS: TROPONIN I 0.24 ng/mL (0.00-0.06)
[2020-11-24] MEDS ORDERED: NITROGLYCERIN 1GM/1 INCH PACKET TD ONE (20:54)
[2020-11-24] MEDS ORDERED: HYDRALAZINE HCL 20 MG/ML VIAL ONE (23:22)
[2020-11-25] MEDS: SODIUM BICARB 8.4% 50ML SYRINGE IVP SCH (00:30)
[2020-11-25 04:28] LABS: ABG BASE EXCESS 2.3 mmol/L (-2.0-3.0); ABG HCO3 25.7 mmol/L (21.0-28.0); ABG OXYGEN SATURATION 96.3 % (95.0-99.0); ABG PCO2 36 mmHg (32-45)
[2020-11-25] MEDS: NITROGLYCERIN 1GM/1 INCH PACKET TD SCH (06:46)
[2020-11-25] MEDS: INSULIN R NPO SS2 SQ SCH ×2 (06:46)
[2020-11-25 06:49] LABS: BASOPHILS % (AUTO) 0.7 % (0.0-5.0); EOSINOPHILS % (AUTO) 2.2 % (0.0-8.0); HEMATOCRIT 28.9 % (36-48); LYMPHOCYTES % (AUTO) 18.3 % (21.0-51.0); MEAN CORPUSCULAR HEMOGLOBIN 28.5 pg (27.0-33.0); MEAN CORPUSCULAR HGB CONC 32.5 g/dL (32.0-36.0); MEAN CORPUSCULAR VOLUME 87.6 fL (79-99); MONOCYTES % (AUTO) 5.9 % (3.0-13.0); NEUTROPHILS % (AUTO) 72.4 % (40.0-77.0); PLATELET COUNT (AUTO) 219 K/uL (130-400); RED CELL DISTRIBUTION WIDTH 16.4 % (11.0-15.5); WHITE BLOOD COUNT (AUTO) 8.1 K/uL (4.8-10.8)
[2020-11-25 07:03] LABS: CREATININE 6.3 mg/dL (0.5-1.5); PHOSPHORUS 5.5 mg/dL (2.5-4.9); POTASSIUM 3.7 mmol/L (3.5-5.1)
[2020-11-25 08:07] VITALS: BP 184/67
[2020-11-25 08:15] LABS: HEPATITIS A ANTIBODY IGM Negative (Negative); HEPATITIS B CORE IGM Negative (Negative); HEPATITIS Bs ANTIGEN SCREEN P Negative (Negative)
[2020-11-25] MEDS ORDERED: DOXY100T2 PO ×2 (08:26)
[2020-11-25] MEDS ORDERED: ALBUTEROL INHALER 90MCG/INH IH PRN (08:30)
[2020-11-25] MEDS: ENOXAPARIN SODIUM 30 MG/0.3 ML SQ SCH (08:46)
[2020-11-25] MEDS ORDERED: CETIRIZINE HCL 5 MG TABLET PO SCH (09:00)
[2020-11-25] MEDS ORDERED: INSULIN GLARGINE 100 UNITS/ML 10 ML VIAL SQ SCH (09:00)
[2020-11-25] MEDS ORDERED: AMLODIPINE BESYLATE 5 MG TAB PO SCH (09:00)
[2020-11-25] MEDS ORDERED: LOSARTAN 100 MG TABLET PO SCH (09:00)
[2020-11-25] MEDS ORDERED: GABAPENTIN 300 MG CAPSULE PO SCH (09:00)
[2020-11-25] MEDS ORDERED: CLOPIDOGREL BISULFATE 75 MG TAB PO SCH (09:00)
[2020-11-25] MEDS ORDERED: ATORVASTATIN CALCIUM 40 MG TABLET PO SCH (09:00)
[2020-11-25] MEDS ORDERED: CLONIDINE HCL 0.1 MG TABLET PO SCH (09:00)
[2020-11-25] MEDS ORDERED: FAMOTIDINE 20MG TAB 20 MG TAB PO SCH (09:00)
[2020-11-25] MEDS ORDERED: METOPROLOL TARTRATE 25 MG TAB PO SCH (09:00)
[2020-11-25] MEDS ORDERED: APIXABAN 2.5 MG TABLET PO SCH (09:00)
[2020-11-25] MEDS: DOXYCYCLINE 100MG+NS 250ML 250 ML IV SCH (10:12)
[2020-11-25 10:13] VITALS: BP 184/67
[2020-11-25] MEDS ORDERED: LATANOPROST 2.5 ML DROPS OP SCH (21:00)
== END 2020-11-25 11:33 | disposition home or self-care (01) ==
LOC: EDH 20:48 → EDHIP 22:16 → 4BH 11-25 05:50
PROVIDERS: ADMIT Internal Medicine Critical Care Medicine; ATTEND Internal Medicine Critical Care Medicine
DX: J20.9 Acute bronchitis, unspecified (principal); Z20.822 Contact with and (suspected) exposure to COVID-19; I13.2 Hypertensive heart and chronic kidney disease with heart failure and with stage 5 chronic kidney disease, or end stage renal disease; E11.22 Type 2 diabetes mellitus with diabetic chronic kidney disease; N18.6 End stage renal disease; I50.32 Chronic diastolic (congestive) heart failure; J96.01 Acute respiratory failure with hypoxia; E87.2 Acidosis; E78.5 Hyperlipidemia, unspecified; G47.33 Obstructive sleep apnea (adult) (pediatric); R41.82 Altered mental status, unspecified; E11.65 Type 2 diabetes mellitus with hyperglycemia; I48.0 Paroxysmal atrial fibrillation; I25.10 Atherosclerotic heart disease of native coronary artery without angina pectoris; D72.829 Elevated white blood cell count, unspecified; D63.8 Anemia in other chronic diseases classified elsewhere; Z85.72 Personal history of non-Hodgkin lymphomas; Z90.710 Acquired absence of both cervix and uterus; Z99.2 Dependence on renal dialysis; Z91.11 Patient's noncompliance with dietary regimen; Z91.19 Patient's noncompliance with other medical treatment and regimen; Z79.01 Long term (current) use of anticoagulants; Z79.4 Long term (current) use of insulin; Z79.899 Other long term (current) drug therapy; Z88.6 Allergy status to analgesic agent
CPT/HCPCS: 36415 ×3; 36600 ×3; 71045 ×3; 80048 ×2; 80053; 80074; 81001; 82010; 82550 ×4; 82803 ×3; 82948 ×5; 83605 ×2; 83735; 83874 ×3; 83880; 84100; 84145; 84484 ×4; 85025 ×3; 85610; 85730; 87040 ×2; 87077; 87186; 87426; 87804 ×2; 87880; 93005 ×4; 94660 ×2; 96365; 96372; 99291; G0378 ×34; J0360 ×2; J0456; J0696; J1100; J1650 ×2; J1815 ×5; J1940; J2060; J3490 ×6; U0003; 90935

== ENCOUNTER 2020-12-14 05:39 | Inpatient (IN) | payer OTHER, MEDICARE ==
[~2020-12-14] VITALS: Ht 157.5 cm; Wt 54.4 kg
[~2020-12-14 05:39] MED LIST changes: +DOXY100T2 PO
[2020-12-14] MEDS ORDERED: NITROGLYCERIN 1GM OINT 1 INCH/1GM TD ONE (06:02)
[2020-12-14 06:06] LABS: BASOPHILS % (AUTO) 0.6 % (0.0-5.0); EOSINOPHILS % (AUTO) 0.3 % (0.0-8.0); HEMATOCRIT 32.3 % (36-48); LYMPHOCYTES % (AUTO) 6.8 % (21.0-51.0); MEAN CORPUSCULAR HEMOGLOBIN 27.6 pg (27.0-33.0); MEAN CORPUSCULAR HGB CONC 32.5 g/dL (32.0-36.0); MONOCYTES % (AUTO) 5.2 % (3.0-13.0); NEUTROPHILS % (AUTO) 86.4 % (40.0-77.0); PLATELET COUNT (AUTO) 299 K/uL (130-400); RED CELL DISTRIBUTION WIDTH 14.6 % (11.0-15.5); WHITE BLOOD COUNT (AUTO) 14.5 K/uL (4.8-10.8)
[2020-12-14 06:22] LABS: ALBUMIN 3.5 g/dL (3.5-5.0); BILIRUBIN,TOTAL 0.7 mg/dL (0.2-1.0); CREATININE 6.9 mg/dL (0.5-1.5); POTASSIUM 3.6 mmol/L (3.5-5.1); TOTAL PROTEIN, SERUM 7.7 g/dL (6.0-8.3)
[2020-12-14] MEDS ORDERED: INSULIN HUMULIN R 100 UNIT/ML 3ML ONE ×4 (06:32→21:19)
[2020-12-14] MEDS ORDERED: VANCOMYCIN KIT 1 GM/250 ML IV.KIT IV SCH (08:45)
[2020-12-14] MEDS ORDERED: ACETAMINOPHEN 325 MG TAB PO PRN (08:45)
[2020-12-14] MEDS ORDERED: VANCOMYCIN PROTOCOL PER PHARMACY IV SCH (08:45)
[2020-12-14] MEDS ORDERED: ACETAMINOPHEN 650 MG SUPPOSITORY RC PRN (08:45)
[2020-12-14] MEDS ORDERED: ZOSYN 3.375GM +NS 50ML IV SCH (08:45)
[2020-12-14] MEDS ORDERED: VANCOMYCIN 1G/250ML KIT 250 ML IV SCH (09:00)
[2020-12-14] MEDS ORDERED: ENOXAPARIN SODIUM 30 MG/0.3 ML SQ SCH (09:00)
[2020-12-14 09:30] LABS: CRP QUANTITATIVE 133.2 mg/L (0.00-9.0)
[2020-12-14] MEDS ORDERED: RENAL DOSE IV PRN (09:30)
[2020-12-14] MEDS ORDERED: LABETALOL 20MG SYG IV PRN (09:30)
[2020-12-14] MEDS ORDERED: LABETALOL 20MG VIAL IV ONE (09:33)
[2020-12-14 09:39] LABS: TROPONIN I 0.08 ng/mL (0.00-0.06)
[2020-12-14] MEDS ORDERED: LABETALOL 20MG SYG IV SCH (10:19)
[2020-12-14] MEDS ORDERED: GUAIFENESIN-CODEINE 5 ML SYRUP PO PRN (13:00)
[2020-12-14] MEDS ORDERED: INSULIN HUMULIN R 100 UNIT/ML 3ML IV SCH (14:30)
[2020-12-14 14:56] LABS: TROPONIN I 0.08 ng/mL (0.00-0.06)
[2020-12-14] MEDS ORDERED: SOLU-MEDROL 40MG VIAL ONE (15:24)
[2020-12-14] MEDS ORDERED: VANCOMYCIN 1G/250ML KIT 250 ML IV ONE (15:26)
[2020-12-14] MEDS ORDERED: ZOSYN 3.375GM+NS 50ML 50 ML IV ONE (15:26)
[2020-12-14] MEDS ORDERED: IOHEXOL 350 MG/ML 100ML INFUS..BTL IV ONE (16:30)
[2020-12-14] MEDS ORDERED: METOCLOPRAMIDE 5 MG TABLET ONE ×2 (17:37→21:22)
[2020-12-14 21:00] LABS: TROPONIN I 0.05 ng/mL (0.00-0.06)
[2020-12-14] MEDS: METOCLOPRAMIDE 5 MG TABLET PO SCH (21:00)
[2020-12-14] MEDS: INSULIN HUMULIN R 100 UNIT/ML 3ML SQ SCH (21:00)
[2020-12-14] MEDS: ZOSYN 3.375GM+NS 50ML 50 ML IV SCH (21:00)
[2020-12-14] MEDS ORDERED: SOLU-MEDROL 40MG VIAL IVP SCH (21:00)
[2020-12-15] MEDS ORDERED: HYDRALAZINE 20MG/ML VIAL ONE (01:36)
[2020-12-15] MEDS ORDERED: HYDRALAZINE 20MG/ML VIAL IV PRN (03:00)
[2020-12-15 06:15] LABS: BASOPHILS % (AUTO) 0.2 % (0.0-5.0); LYMPHOCYTES % (AUTO) 5.5 % (21.0-51.0); MEAN CORPUSCULAR HEMOGLOBIN 27.7 pg (27.0-33.0); MEAN CORPUSCULAR HGB CONC 32.6 g/dL (32.0-36.0); MEAN CORPUSCULAR VOLUME 85.2 fL (79-99); MONOCYTES % (AUTO) 2.7 % (3.0-13.0); NEUTROPHILS % (AUTO) 90.8 % (40.0-77.0); PLATELET COUNT (AUTO) 276 K/uL (130-400); RED BLOOD CELL COUNT(AUTO) 3.64 MIL/uL (4.00-5.50); RED CELL DISTRIBUTION WIDTH 14.6 % (11.0-15.5); WHITE BLOOD COUNT (AUTO) 10.4 K/uL (4.8-10.8)
[2020-12-15 06:29] LABS: CREATININE 6.4 mg/dL (0.5-1.5); MAGNESIUM 2.1 mg/dL (1.80-2.40); PHOSPHORUS 5.1 mg/dL (2.5-4.9); POTASSIUM 4.4 mmol/L (3.5-5.1)
[2020-12-15] MEDS: INSULIN HUMULIN R 100 UNIT/ML 3ML SQ SCH ×6 (07:30→21:02)
[2020-12-15] MEDS: METOCLOPRAMIDE 5 MG TABLET PO SCH ×5 (07:30→21:01)
[2020-12-15] MEDS ORDERED: INSULIN HUMULIN R 100 UNIT/ML 3ML ONE ×2 (07:31→13:39)
[2020-12-15] MEDS: HEPARIN 5,000 UNIT VIAL SQ SCH ×2 (08:00→21:01)
[2020-12-15] MEDS ORDERED: INSU100V12 SQ ×2 (08:09)
[2020-12-15] MEDS ORDERED: CLON0.1T PO (08:09)
[2020-12-15] MEDS: ZOSYN 3.375GM+NS 50ML 50 ML IV SCH ×3 (09:00→21:00)
[2020-12-15] MEDS ORDERED: CLONIDINE HCL 0.1 MG TABLET PO PRN (11:15)
[2020-12-15] MEDS ORDERED: METOPROLOL TARTRATE 25 MG TAB ONE (13:38)
[2020-12-15] MEDS ORDERED: AMLODIPINE 5 MG TAB ONE (13:38)
[2020-12-15] MEDS ORDERED: ZOSYN 3.375GM+NS 50ML 50 ML IV ONE (13:38)
[2020-12-15] MEDS ORDERED: SOLU-MEDROL 40MG VIAL ONE (13:38)
[2020-12-15] MEDS ORDERED: 0.9%NACL 50ML 50 ML IV ONE (13:40)
[2020-12-15 15:14] VITALS: BP 176/62
[2020-12-15 15:28] VITALS: BP 176/62
[2020-12-15 20:00] VITALS: BP 171/52
[2020-12-15] MEDS: METOPROLOL TARTRATE 25 MG TAB PO SCH (21:00)
[2020-12-15] MEDS: GABAPENTIN 300 MG CAPSULE PO SCH (21:00)
[2020-12-15] MEDS: LATANOPROST 2.5 ML DROPS OP SCH (21:03)
[2020-12-15 23:24] VITALS: BP 158/59
[2020-12-16 03:46] VITALS: BP 166/59
[2020-12-16] MEDS: INSULIN HUMULIN R 100 UNIT/ML 3ML SQ SCH ×2 (04:37→11:42)
[2020-12-16 05:52] LABS: MEAN CORPUSCULAR HEMOGLOBIN 27.4 pg (27.0-33.0); MEAN CORPUSCULAR HGB CONC 31.7 g/dL (32.0-36.0); MEAN CORPUSCULAR VOLUME 86.4 fL (79-99); RED BLOOD CELL COUNT(AUTO) 4.05 MIL/uL (4.00-5.50); RED CELL DISTRIBUTION WIDTH 14.7 % (11.0-15.5); WHITE BLOOD COUNT (AUTO) 12.4 K/uL (4.8-10.8)
[2020-12-16] MEDS: METOCLOPRAMIDE 5 MG TABLET PO SCH ×4 (06:04→20:26)
[2020-12-16 06:22] LABS: ALBUMIN 3.1 g/dL (3.5-5.0); BILIRUBIN,TOTAL 0.5 mg/dL (0.2-1.0); CREATININE 5.5 mg/dL (0.5-1.5); MAGNESIUM 3.1 mg/dL (1.80-2.40); PHOSPHORUS 5.9 mg/dL (2.5-4.9); POTASSIUM 3.7 mmol/L (3.5-5.1)
[2020-12-16] MEDS ORDERED: ALBUMIN (HUMAN) 25% 100 ML IV PRN (08:00)
[2020-12-16 08:14] LABS: HEPATITIS B CORE IGM Negative (Negative); HEPATITIS Bs ANTIGEN SCREEN P Negative (Negative)
[2020-12-16] MEDS: ZOSYN 3.375GM+NS 50ML 50 ML IV SCH ×2 (08:23→20:27)
[2020-12-16 08:25] VITALS: BP_SYST 163; BP_SYST 180; BP_DIAS 47; BP_DIAS 53
[2020-12-16] MEDS: AMLODIPINE 5 MG TAB PO SCH (08:26)
[2020-12-16] MEDS: METOPROLOL TARTRATE 25 MG TAB PO SCH ×2 (08:26→20:26)
[2020-12-16] MEDS: HEPARIN 5,000 UNIT VIAL SQ SCH ×2 (08:51→20:00)
[2020-12-16 11:49] VITALS: BP 159/50
[2020-12-16] MEDS ORDERED: PHARMACY COMMUNICATION MISC SCH (13:00)
[2020-12-16] MEDS ORDERED: DEXTROSE 4 GM TAB.CHEW PO PRN (13:30)
[2020-12-16 16:34] VITALS: BP 146/47
[2020-12-16] MEDS: INSULIN R PO SS1/2 SQ SCH (16:49)
[2020-12-16 19:40] VITALS: BP 163/54
[2020-12-16] MEDS: GABAPENTIN 300 MG CAPSULE PO SCH (20:26)
[2020-12-16] MEDS: LATANOPROST 2.5 ML DROPS OP SCH (20:32)
[2020-12-16] MEDS: APIXABAN 2.5 MG TABLET PO SCH (20:40)
[2020-12-16] MEDS ORDERED: EPOETIN ALFA-EPBX (ESRD) 10,000 UNIT/ML VIAL IV NR (21:00)
[2020-12-16] MEDS: EPOETIN ALFA-EPBX (ESRD) 10,000 UNIT/ML VIAL IV NR (21:02)
[2020-12-16] MEDS: INSULIN GLARGINE 100 UNITS/ML 10 ML VIAL SQ SCH (21:07)
[2020-12-16 23:31] VITALS: BP 140/47
[2020-12-17 03:40] VITALS: BP 152/60
[2020-12-17 05:10] LABS: HEMATOCRIT 28.4 % (36-48); MEAN CORPUSCULAR HEMOGLOBIN 27.6 pg (27.0-33.0); MEAN CORPUSCULAR HGB CONC 32.4 g/dL (32.0-36.0); MEAN CORPUSCULAR VOLUME 85.3 fL (79-99); RED BLOOD CELL COUNT(AUTO) 3.33 MIL/uL (4.00-5.50); RED CELL DISTRIBUTION WIDTH 14.8 % (11.0-15.5); WHITE BLOOD COUNT (AUTO) 7.3 K/uL (4.8-10.8)
[2020-12-17 05:23] LABS: CREATININE 7.7 mg/dL (0.5-1.5); POTASSIUM 3.7 mmol/L (3.5-5.1)
[2020-12-17] MEDS: INSULIN GLARGINE 100 UNITS/ML 10 ML VIAL SQ SCH ×2 (07:10→22:24)
[2020-12-17] MEDS: INSULIN R PO SS1/2 SQ SCH ×3 (07:30→17:00)
[2020-12-17] MEDS: METOCLOPRAMIDE 5 MG TABLET PO SCH ×4 (07:30→22:12)
[2020-12-17] MEDS: HEPARIN 5,000 UNIT VIAL SQ SCH ×2 (08:00→22:22)
[2020-12-17 08:59] VITALS: BP 135/50
[2020-12-17] MEDS: METOPROLOL TARTRATE 25 MG TAB PO SCH ×2 (09:00→22:12)
[2020-12-17] MEDS: APIXABAN 2.5 MG TABLET PO SCH ×2 (09:00→21:00)
[2020-12-17] MEDS: CLOPIDOGREL 75MG TAB PO SCH (09:00)
[2020-12-17] MEDS: AMLODIPINE 5 MG TAB PO SCH (09:00)
[2020-12-17] MEDS: ZOSYN 3.375GM+NS 50ML 50 ML IV SCH ×2 (09:00→22:14)
[2020-12-17 12:00] VITALS: BP 156/56
[2020-12-17 17:01] VITALS: BP 117/58
[2020-12-17 19:40] VITALS: BP 180/59
[2020-12-17] MEDS: GABAPENTIN 300 MG CAPSULE PO SCH (22:12)
[2020-12-17] MEDS: LATANOPROST 2.5 ML DROPS OP SCH (22:13)
[2020-12-17 23:20] VITALS: BP 147/40
[2020-12-18 03:45] VITALS: BP 130/60
[2020-12-18 05:11] LABS: HEMATOCRIT 29.8 % (36-48); MEAN CORPUSCULAR HEMOGLOBIN 27.2 pg (27.0-33.0); MEAN CORPUSCULAR HGB CONC 31.5 g/dL (32.0-36.0); MEAN CORPUSCULAR VOLUME 86.4 fL (79-99); RED BLOOD CELL COUNT(AUTO) 3.45 MIL/uL (4.00-5.50); RED CELL DISTRIBUTION WIDTH 14.6 % (11.0-15.5); WHITE BLOOD COUNT (AUTO) 6.4 K/uL (4.8-10.8)
[2020-12-18 05:37] LABS: ALBUMIN 2.6 g/dL (3.5-5.0); BILIRUBIN,TOTAL 0.3 mg/dL (0.2-1.0); CREATININE 4.8 mg/dL (0.5-1.5); POTASSIUM 3.1 mmol/L (3.5-5.1)
[2020-12-18] MEDS: INSULIN GLARGINE 100 UNITS/ML 10 ML VIAL SQ SCH ×2 (07:30→22:00)
[2020-12-18] MEDS: METOCLOPRAMIDE 5 MG TABLET PO SCH ×4 (07:30→22:04)
[2020-12-18] MEDS: INSULIN R PO SS1/2 SQ SCH ×3 (07:30→16:51)
[2020-12-18] MEDS: HEPARIN 5,000 UNIT VIAL SQ SCH ×2 (08:00→21:59)
[2020-12-18 08:02] VITALS: BP 119/49
[2020-12-18] MEDS: CLOPIDOGREL 75MG TAB PO SCH (09:00)
[2020-12-18] MEDS: APIXABAN 2.5 MG TABLET PO SCH ×2 (09:00→22:04)
[2020-12-18] MEDS: ZOSYN 3.375GM+NS 50ML 50 ML IV SCH ×2 (10:04→22:05)
[2020-12-18] MEDS: METOPROLOL TARTRATE 25 MG TAB PO SCH ×2 (10:05→22:04)
[2020-12-18] MEDS: AMLODIPINE 5 MG TAB PO SCH (10:06)
[2020-12-18 11:27] VITALS: BP 146/73
[2020-12-18 16:00] VITALS: BP 130/51
[2020-12-18 20:43] VITALS: BP 133/94
[2020-12-18] MEDS: LATANOPROST 2.5 ML DROPS OP SCH (21:00)
[2020-12-18] MEDS: GABAPENTIN 300 MG CAPSULE PO SCH (22:05)
[2020-12-18] MEDS: EPOETIN ALFA-EPBX (ESRD) 10,000 UNIT/ML VIAL IV NR (22:06)
[2020-12-18 23:52] VITALS: BP 133/54
[2020-12-19 04:21] VITALS: BP 135/44
[2020-12-19 05:33] LABS: HEMATOCRIT 27.8 % (36-48); MEAN CORPUSCULAR HEMOGLOBIN 27.7 pg (27.0-33.0); MEAN CORPUSCULAR HGB CONC 32.7 g/dL (32.0-36.0); MEAN CORPUSCULAR VOLUME 84.8 fL (79-99); RED BLOOD CELL COUNT(AUTO) 3.28 MIL/uL (4.00-5.50); RED CELL DISTRIBUTION WIDTH 14.4 % (11.0-15.5); WHITE BLOOD COUNT (AUTO) 8.6 K/uL (4.8-10.8)
[2020-12-19 06:15] LABS: CREATININE 7.2 mg/dL (0.5-1.5); POTASSIUM 3.5 mmol/L (3.5-5.1)
[2020-12-19] MEDS: INSULIN R PO SS1/2 SQ SCH (06:30)
[2020-12-19] MEDS: INSULIN GLARGINE 100 UNITS/ML 10 ML VIAL SQ SCH (06:30)
[2020-12-19] MEDS: METOCLOPRAMIDE 5 MG TABLET PO SCH ×2 (06:44→12:54)
[2020-12-19 07:57] VITALS: BP 127/59
[2020-12-19] MEDS ORDERED: VANCOMYCIN 1G/250ML KIT 250 ML IV SCH (09:00)
[2020-12-19] MEDS: ZOSYN 3.375GM+NS 50ML 50 ML IV SCH (10:44)
[2020-12-19 11:59] VITALS: BP 123/50
[2020-12-19] MEDS: HEPARIN 5,000 UNIT VIAL SQ SCH (12:00)
[2020-12-19] MEDS: APIXABAN 2.5 MG TABLET PO SCH (12:49)
[2020-12-19] MEDS: METOPROLOL TARTRATE 25 MG TAB PO SCH (12:49)
[2020-12-19] MEDS: CLOPIDOGREL 75MG TAB PO SCH (12:53)
[2020-12-19] MEDS: AMLODIPINE 5 MG TAB PO SCH (12:53)
== END 2020-12-19 14:55 | disposition home or self-care (01) | DRG 871 ==
LOC: EDH 05:39 → OBSVTOIN 08:33 → EDHIP 08:33 → 3CH 12-15 15:13
PROVIDERS: ADMIT Internal Medicine Critical Care Medicine; ATTEND Internal Medicine Critical Care Medicine
PROC: 5A1D70Z Performance of Urinary Filtration, Intermittent, Less than 6 Hours Per Day (ICD-10-PCS; principal; 2020-12-14)
PROC: 5A1D70Z Performance of Urinary Filtration, Intermittent, Less than 6 Hours Per Day (ICD-10-PCS; 2020-12-15)
PROC: 5A09357 Assistance with Respiratory Ventilation, Less than 24 Consecutive Hours, Continuous Positive Airway Pressure (ICD-10-PCS; 2020-12-15)
PROC: 5A1D70Z Performance of Urinary Filtration, Intermittent, Less than 6 Hours Per Day (ICD-10-PCS; 2020-12-17)
PROC: 5A1D70Z Performance of Urinary Filtration, Intermittent, Less than 6 Hours Per Day (ICD-10-PCS; 2020-12-18)
PROC: 5A1D70Z Performance of Urinary Filtration, Intermittent, Less than 6 Hours Per Day (ICD-10-PCS; 2020-12-19)
DX: A41.89 Other specified sepsis (principal); J18.9 Pneumonia, unspecified organism; J96.21 Acute and chronic respiratory failure with hypoxia; N18.6 End stage renal disease; I50.33 Acute on chronic diastolic (congestive) heart failure; I13.2 Hypertensive heart and chronic kidney disease with heart failure and with stage 5 chronic kidney disease, or end stage renal disease; E87.1 Hypo-osmolality and hyponatremia; E11.22 Type 2 diabetes mellitus with diabetic chronic kidney disease; I48.0 Paroxysmal atrial fibrillation; D63.8 Anemia in other chronic diseases classified elsewhere; I16.0 Hypertensive urgency; Z20.822 Contact with and (suspected) exposure to COVID-19; D72.810 Lymphocytopenia; E11.649 Type 2 diabetes mellitus with hypoglycemia without coma; E11.65 Type 2 diabetes mellitus with hyperglycemia; E66.9 Obesity, unspecified; E87.70 Fluid overload, unspecified; E78.5 Hyperlipidemia, unspecified; G47.30 Sleep apnea, unspecified; I25.10 Atherosclerotic heart disease of native coronary artery without angina pectoris; E87.6 Hypokalemia; Y95 Nosocomial condition; Z68.21 Body mass index [BMI] 21.0-21.9, adult; Z88.6 Allergy status to analgesic agent; Z99.2 Dependence on renal dialysis; Z79.01 Long term (current) use of anticoagulants; Z79.02 Long term (current) use of antithrombotics/antiplatelets; Z79.4 Long term (current) use of insulin; Z79.899 Other long term (current) drug therapy; Z99.81 Dependence on supplemental oxygen; Z92.21 Personal history of antineoplastic chemotherapy; Z91.19 Patient's noncompliance with other medical treatment and regimen; Z90.710 Acquired absence of both cervix and uterus; Z87.01 Personal history of pneumonia (recurrent); Z83.3 Family history of diabetes mellitus; Z82.49 Family history of ischemic heart disease and other diseases of the circulatory system
CPT/HCPCS: 36415; 71045; 71275; 80048; 80053; 80074; 80202; 82550; 82728; 82948; 83615; 83735; 83874; 83880; 84100; 84145; 84484; 85025; 85027; 85378; 86140; 86850; 86900; 86901; 87040; 87077; 87186; 87426; 87804; 90935; 93005; 93306; G0378; J0360; J1644; J1815; J2543; J2920; J3370; J3490; Q9967; U0003

== ENCOUNTER 2020-12-31 15:26 | Inpatient (IN) | payer OTHER, MEDICARE ==
[~2020-12-31] VITALS: Ht 157.5 cm; Wt 59.6 kg
[~2020-12-31 15:26] MED LIST changes: -ATOR20TA65 PO; -CETI-89 PO; -CLON1PAT14 TD; -DOXY100T2 PO; -FAMO20TA8 PO; -HUMALOG SQ; -LOSA100T2 PO
[2020-12-31 16:28] LABS: APPEARANCE,URINE Clear (CLEAR); BILIRUBIN,URINE Negative (NEGATIVE); COLOR,URINE Yellow (YELLOW); GLUCOSE, URINE (UA) >=1000 mg/dL (NEGATIVE); KETONES,URINE Negative (NEGATIVE); LEUKOCYTE ESTERASE ,URINE Negative (NEGATIVE); NITRATE,URINE Negative (NEGATIVE); OCCULT BLOOD,URINE Trace (NEGATIVE); PH,URINE 6.5 (5.0-8.0); PROTEIN,URINE >=1000 mg/dL (NEGATIVE); UROBILINOGEN,URINE 0.2 mg/dL (0.2-1.0)
[2020-12-31] MEDS ORDERED: CEFTRIAXONE 1G VIAL ONE (16:32)
[2020-12-31] MEDS ORDERED: ACETAMINOPHEN 500 MG TABLET ONE (16:33)
[2020-12-31 16:38] LABS: BASOPHILS % (AUTO) 0.4 % (0.0-5.0); EOSINOPHILS % (AUTO) 0.8 % (0.0-8.0); HEMATOCRIT 26.5 % (36-48); MEAN CORPUSCULAR HEMOGLOBIN 27.5 pg (27.0-33.0); MEAN CORPUSCULAR HGB CONC 32.8 g/dL (32.0-36.0); MEAN CORPUSCULAR VOLUME 83.9 fL (79-99); MONOCYTES % (AUTO) 4.5 % (3.0-13.0); PLATELET COUNT (AUTO) 177 K/uL (130-400); RED BLOOD CELL COUNT(AUTO) 3.16 MIL/uL (4.00-5.50)
[2020-12-31 16:45] LABS: RBC,URINE 0-1 /HPF (0-1)
[2020-12-31 16:46] LABS: BACTERIA,URINE Few /HPF (None Seen)
[2020-12-31 16:47] LABS: AMORPHOUS SEDIMENT,UR Rare /LPF (None Seen); HYALINE CASTS, URINE 0-1 /LPF (0-1 /LPF); SQUAMOUS EPITHELIAL CELL,UR Rare /HPF (0-2)
[2020-12-31 16:50] LABS: INR 1.08 (0.85-1.15); PROTHROMBIN TIME 11.7 SEC (9.6-11.6)
[2020-12-31 17:00] LABS: ALBUMIN 2.8 g/dL (3.5-5.0); B-TYPE NATRIURETIC PEPTIDE 3430 pg/mL (0-100); BILIRUBIN,TOTAL 0.5 mg/dL (0.2-1.0); POTASSIUM 3.9 mmol/L (3.5-5.1); TOTAL PROTEIN, SERUM 6.2 g/dL (6.0-8.3); TROPONIN I 0.07 ng/mL (0.00-0.06)
[2020-12-31 17:03] LABS: CREATININE 7.9 mg/dL (0.5-1.5)
[2020-12-31 17:15] LABS: ABG BASE EXCESS -4.7 mmol/L (-2.0-3.0); ABG HCO3 20.3 mmol/L (21.0-28.0); ABG OXYGEN SATURATION 87.4 % (95.0-99.0); ABG PCO2 38 mmHg (32-45)
[2020-12-31] MEDS ORDERED: INSULIN HUMULIN R 100 UNIT/ML 3ML ONE (18:23)
[2020-12-31] MEDS ORDERED: LACTULOSE 20 GM/30 ML UDCUP PO PRN (21:30)
[2020-12-31] MEDS ORDERED: ONDANSETRON 4MG INJ IV PRN (21:30)
[2020-12-31] MEDS ORDERED: VANCOMYCIN 1G/250ML KIT 250 ML IV ONE (22:02)
[2021-01-01] MEDS: INSULIN HUMULIN R 100 UNIT/ML 3ML SQ SCH ×5 (07:30→20:17)
[2021-01-01] MEDS ORDERED: INSULIN LISPRO 100 UNIT/ML 3ML SQ SCH (07:30)
[2021-01-01] MEDS ORDERED: VANCOMYCIN PROTOCOL PER PHARMACY IV SCH (08:00)
[2021-01-01] MEDS: HEPARIN 5,000 UNIT VIAL SQ SCH ×2 (08:00→20:15)
[2021-01-01 08:07] LABS: HEMATOCRIT 30.2 % (36-48); MEAN CORPUSCULAR HEMOGLOBIN 26.6 pg (27.0-33.0); MEAN CORPUSCULAR HGB CONC 31.5 g/dL (32.0-36.0); MEAN CORPUSCULAR VOLUME 84.6 fL (79-99); PLATELET COUNT (AUTO) 185 K/uL (130-400); RED BLOOD CELL COUNT(AUTO) 3.57 MIL/uL (4.00-5.50); RED CELL DISTRIBUTION WIDTH 15.9 % (11.0-15.5)
[2021-01-01] MEDS ORDERED: HEPARIN 5,000 UNIT VIAL ONE (08:20)
[2021-01-01] MEDS ORDERED: CEFTRIAXONE 1G VIAL ONE (08:20)
[2021-01-01] MEDS ORDERED: FAMOTIDINE 20MG VIAL IV ONE (08:20)
[2021-01-01 08:22] LABS: ALBUMIN 2.5 g/dL (3.5-5.0); BILIRUBIN,TOTAL 0.4 mg/dL (0.2-1.0); CREATININE 5.8 mg/dL (0.5-1.5); PHOSPHORUS 5.3 mg/dL (2.5-4.9); POTASSIUM 3.8 mmol/L (3.5-5.1); TOTAL PROTEIN, SERUM 5.8 g/dL (6.0-8.3)
[2021-01-01 08:32] LABS: B-TYPE NATRIURETIC PEPTIDE 2770 pg/mL (0-100)
[2021-01-01] MEDS ORDERED: INSULIN HUMULIN R 100 UNIT/ML 3ML ONE ×2 (08:46→11:06)
[2021-01-01 08:52] LABS: BASOPHILS % (MANUAL) 4 % (0-2); LYMPHOCYTES % (MANUAL) 8 % (22-44); MAN.DIFF COMMENT-IMPRESSION MANUAL DIFFERENTIAL; MONOCYTES % (MANUAL) 4 % (2-9); SEGMENTED NEUTROPHILS % 84 % (40-70)
[2021-01-01 08:54] LABS: PLATELET MORPHOLOGY COMMENT ADEQUATE
[2021-01-01] MEDS: CEFTRIAXONE 1G VIAL IV SCH (09:00)
[2021-01-01] MEDS: FAMOTIDINE 20MG VIAL IV SCH (09:00)
[2021-01-01] MEDS ORDERED: ENOXAPARIN SODIUM 30 MG/0.3 ML SQ SCH (09:00)
[2021-01-01] MEDS ORDERED: CLONIDINE HCL 0.1 MG TABLET PO PRN (10:00)
[2021-01-01] MEDS ORDERED: CLONIDINE HCL 0.1 MG TABLET ONE (10:53)
[2021-01-01] MEDS ORDERED: PHARMACY COMMUNICATION MISC SCH (11:30)
[2021-01-01 11:56] VITALS: BP 157/52
[2021-01-01 16:17] VITALS: BP 148/44
[2021-01-01] MEDS: METOPROLOL TARTRATE 25 MG TAB PO SCH ×2 (17:00→20:18)
[2021-01-01 19:45] VITALS: BP 160/45
[2021-01-01] MEDS: INSULIN GLARGINE 100 UNITS/ML 10 ML VIAL SQ SCH (20:16)
[2021-01-01] MEDS: GABAPENTIN 300 MG CAPSULE PO SCH (20:18)
[2021-01-02] VITALS (7 sets, daily range): BP systolic 100–171; BP diastolic 50–65
[2021-01-02 05:21] LABS: HEMATOCRIT 29.3 % (36-48); MEAN CORPUSCULAR HEMOGLOBIN 26.5 pg (27.0-33.0); MEAN CORPUSCULAR HGB CONC 31.4 g/dL (32.0-36.0); MEAN CORPUSCULAR VOLUME 84.4 fL (79-99); RED BLOOD CELL COUNT(AUTO) 3.47 MIL/uL (4.00-5.50); RED CELL DISTRIBUTION WIDTH 15.8 % (11.0-15.5); WHITE BLOOD COUNT (AUTO) 7.8 K/uL (4.8-10.8)
[2021-01-02 05:35] LABS: CREATININE 7.5 mg/dL (0.5-1.5); POTASSIUM 3.2 mmol/L (3.5-5.1)
[2021-01-02] MEDS: INSULIN HUMULIN R 100 UNIT/ML 3ML SQ SCH ×4 (06:28→19:52)
[2021-01-02] MEDS ORDERED: COMPOUND IV REFRIGERATED 1 EACH IVSOLN MISC PRN (07:00)
[2021-01-02] MEDS ORDERED: VANCOMYCIN 1GM+NS 250ML IV SCH (09:00)
[2021-01-02] MEDS ORDERED: VANCOMYCIN 1G 1.25 GM in 0.9% NACL 250ML 250 ML IV SCH (09:00)
[2021-01-02] MEDS: HEPARIN 5,000 UNIT VIAL SQ SCH ×2 (10:30→19:53)
[2021-01-02] MEDS: AMLODIPINE 5 MG TAB PO SCH (13:17)
[2021-01-02] MEDS: METOPROLOL TARTRATE 25 MG TAB PO SCH ×2 (13:17→19:51)
[2021-01-02] MEDS: FAMOTIDINE 20MG VIAL IV SCH (13:18)
[2021-01-02] MEDS: CEFTRIAXONE 1G VIAL IV SCH (13:19)
[2021-01-02] MEDS: GABAPENTIN 300 MG CAPSULE PO SCH (19:51)
[2021-01-02] MEDS: INSULIN GLARGINE 100 UNITS/ML 10 ML VIAL SQ SCH (19:52)
[2021-01-03 03:56] VITALS: BP 153/53
[2021-01-03] MEDS: INSULIN HUMULIN R 100 UNIT/ML 3ML SQ SCH ×3 (05:33→16:53)
[2021-01-03 05:50] LABS: HEMATOCRIT 32.6 % (36-48); MEAN CORPUSCULAR HEMOGLOBIN 26.8 pg (27.0-33.0); MEAN CORPUSCULAR HGB CONC 31.3 g/dL (32.0-36.0); MEAN CORPUSCULAR VOLUME 85.6 fL (79-99); PLATELET COUNT (AUTO) 235 K/uL (130-400); RED BLOOD CELL COUNT(AUTO) 3.81 MIL/uL (4.00-5.50); RED CELL DISTRIBUTION WIDTH 15.5 % (11.0-15.5); WHITE BLOOD COUNT (AUTO) 5.4 K/uL (4.8-10.8)
[2021-01-03 06:00] LABS: EOSINOPHILS % (MANUAL) 4 % (1-6); LYMPHOCYTES % (MANUAL) 20 % (22-44); MAN.DIFF COMMENT-IMPRESSION MANUAL DIFFERENTIAL; MONOCYTES % (MANUAL) 4 % (2-9); PLATELET MORPHOLOGY COMMENT ADEQUATE; SEGMENTED NEUTROPHILS % 72 % (40-70)
[2021-01-03 06:10] LABS: CREATININE 5.3 mg/dL (0.5-1.5); POTASSIUM 3.8 mmol/L (3.5-5.1)
[2021-01-03 07:00] VITALS: BP 150/55
[2021-01-03] MEDS: HEPARIN 5,000 UNIT VIAL SQ SCH ×2 (08:03→20:18)
[2021-01-03] MEDS: FAMOTIDINE 20MG VIAL IV SCH (09:15)
[2021-01-03] MEDS: CEFTRIAXONE 1G VIAL IV SCH (09:15)
[2021-01-03] MEDS: AMLODIPINE 5 MG TAB PO SCH (09:16)
[2021-01-03] MEDS: METOPROLOL TARTRATE 25 MG TAB PO SCH ×2 (09:16→20:18)
[2021-01-03 11:00] VITALS: BP 160/60
[2021-01-03 16:00] VITALS: BP 159/74
[2021-01-03] MEDS: INSULIN GLARGINE 100 UNITS/ML 10 ML VIAL SQ SCH (20:16)
[2021-01-03] MEDS: GABAPENTIN 300 MG CAPSULE PO SCH (20:18)
[2021-01-03 20:23] VITALS: BP 151/51
[2021-01-04] VITALS: BP 155/64
[2021-01-04 04:21] VITALS: BP 179/84
[2021-01-04 04:27] LABS: HEMATOCRIT 27.5 % (36-48); MEAN CORPUSCULAR HEMOGLOBIN 26.9 pg (27.0-33.0); MEAN CORPUSCULAR HGB CONC 31.6 g/dL (32.0-36.0); MEAN CORPUSCULAR VOLUME 85.1 fL (79-99); RED BLOOD CELL COUNT(AUTO) 3.23 MIL/uL (4.00-5.50); RED CELL DISTRIBUTION WIDTH 15.7 % (11.0-15.5); WHITE BLOOD COUNT (AUTO) 4.4 K/uL (4.8-10.8)
[2021-01-04 04:44] LABS: POTASSIUM 3.7 mmol/L (3.5-5.1)
[2021-01-04] MEDS: HEPARIN 5,000 UNIT VIAL SQ SCH (08:31)
[2021-01-04] MEDS: METOPROLOL TARTRATE 25 MG TAB PO SCH (08:45)
[2021-01-04] MEDS: AMLODIPINE 5 MG TAB PO SCH (08:45)
[2021-01-04 10:31] VITALS: BP 167/59
== END 2021-01-04 10:00 | disposition home or self-care (01) | DRG 871 ==
LOC: EDH 15:26 → EDHIP 21:08 → OBSVTOIN 21:08 → 3AH 01-01 11:35
PROVIDERS: ADMIT Internal Medicine Pulmonary Disease; ATTEND Internal Medicine Pulmonary Disease
PROC: 5A1D70Z Performance of Urinary Filtration, Intermittent, Less than 6 Hours Per Day (ICD-10-PCS; principal; 2020-12-31)
PROC: 5A1D70Z Performance of Urinary Filtration, Intermittent, Less than 6 Hours Per Day (ICD-10-PCS; 2021-01-02)
DX: A41.9 Sepsis, unspecified organism (principal); N18.6 End stage renal disease; J96.01 Acute respiratory failure with hypoxia; J18.9 Pneumonia, unspecified organism; C85.90 Non-Hodgkin lymphoma, unspecified, unspecified site; I13.2 Hypertensive heart and chronic kidney disease with heart failure and with stage 5 chronic kidney disease, or end stage renal disease; E11.65 Type 2 diabetes mellitus with hyperglycemia; I50.9 Heart failure, unspecified; D63.8 Anemia in other chronic diseases classified elsewhere; Z20.822 Contact with and (suspected) exposure to COVID-19; E11.22 Type 2 diabetes mellitus with diabetic chronic kidney disease; E78.5 Hyperlipidemia, unspecified; E11.51 Type 2 diabetes mellitus with diabetic peripheral angiopathy without gangrene; Y95 Nosocomial condition; I25.10 Atherosclerotic heart disease of native coronary artery without angina pectoris; I48.0 Paroxysmal atrial fibrillation; Z66 Do not resuscitate; Z99.2 Dependence on renal dialysis; Z79.899 Other long term (current) drug therapy; Z88.6 Allergy status to analgesic agent; Z79.01 Long term (current) use of anticoagulants; Z79.02 Long term (current) use of antithrombotics/antiplatelets; Z79.4 Long term (current) use of insulin; Z99.81 Dependence on supplemental oxygen; Z91.19 Patient's noncompliance with other medical treatment and regimen; Z91.11 Patient's noncompliance with dietary regimen; Z90.710 Acquired absence of both cervix and uterus; Z87.01 Personal history of pneumonia (recurrent); Z83.3 Family history of diabetes mellitus
CPT/HCPCS: 36415; 36600; 71045; 71250; 80048; 80053; 80202; 81001; 82550; 82803; 82947; 82948; 83605; 83874; 83880; 84100; 84145; 84484; 85025; 85027; 85610; 85730; 86140; 86900; 86901; 87040; 87088; 87426; 87804; 90935; 93005; 99291; G0378; J0696; J1644; J1815; J3370; J3490; J7050; U0003

== ENCOUNTER → 2021-03-03 | Outpatient (CLI) | payer OTHER, MEDICARE ==
[~2021-03-03] MED LIST changes: +IOHEXOL-350 50ML VIAL IV ONE
== END | disposition home or self-care (01) ==
LOC: RAH 10:49
PROVIDERS: ATTEND Family Medicine
DX: I51.7 Cardiomegaly (principal); J90 Pleural effusion, not elsewhere classified; J98.4 Other disorders of lung
CPT/HCPCS: 71260; Q9967